=== PATIENT | female | born 1965 | race Hispanic/Latino ===

== ENCOUNTER 2017-05-23 19:53 | Emergency (ER) | payer OTHER ==
[2017-05-23 20:30] VITALS: BP 104/71; PULSE 90; RESP 14; TEMP 98.7; O2SAT 97
[2017-05-23] MEDS ORDERED: Sodium Chloride 0.9% 1,000 ML IV ONE (21:12)
[2017-05-23] MEDS ORDERED: Sodium Chloride 0.9% 1,000 ML ONE (21:24)
[2017-05-23 21:26] LABS: BASO % 0.6 % (0.0-2.0); EOS # 0.1 K/uL (0.0-0.7); EOS % 1.4 % (0.0-4.0); LYMPH # 1.9 K/uL (1.0-4.3); MEAN CELL VOLUME 98.2 fL (81.0-99.0); MEAN CORPUSCULAR HEMOGLOBIN 34.4 pg (27.0-31.0); MEAN PLATELET VOLUME 9.4 fL (7.2-11.7); MONO # 0.4 K/uL (0.0-0.8); MONO % 6.7 % (0.0-10.0); NEUT # 3.3 K/uL (1.8-7.0); NEUT % 57.3 % (50.0-75.0); NRBC % 0.2 % (0.0-2.0); RBC 4.67 Mil/uL (3.80-5.20); RED CELL DISTRIBUTION WIDTH 14.3 % (11.5-14.5); WHITE BLOOD COUNT 5.7 K/uL (4.8-10.8)
[2017-05-23 21:39] LABS: ALB/GLOB RATIO 1.4 (1.0-2.1); ALBUMIN 4.8 g/dL (3.5-5.0); ALT/SGPT 107 U/L (9-52); AST/SGOT 175 U/L (14-36); BLOOD UREA NITROGEN 13 mg/dL (7-17); CALCIUM 9.3 mg/dl (8.6-10.4); GFR AFRICAN-AMERICAN > 60; GFR NON-AFRICAN AMERICAN > 60; LIPASE 424 U/L (23-300)
[2017-05-23 21:41] LABS: INR 0.9; PROTHROMBIN TIME 10.1 SECONDS (9.7-12.2)
[2017-05-23] MEDS ORDERED: Iodixanol 320 MG/ML 100 ML BOTTLE IV ONE (22:59)
[2017-05-23 23:06] LABS: SQUAMOUS EPITHIAL 4 /hpf (0-5); URINE BACTERIA RARE (<OCC); URINE BILIRUBIN NEGATIVE (NEGATIVE); URINE BLOOD NEGATIVE (NEGATIVE); URINE CLARITY Clear (Clear); URINE COLOR Yellow (YELLOW); URINE GLUCOSE (UA) NORMAL (Normal); URINE LEUKOCYTE ESTERASE NEG Leu/uL (Negative); URINE PROTEIN NEGATIVE (NEGATIVE)
[2017-05-23 23:14] LABS: BARBITURATES, UR NEGATIVE (NEGATIVE); BENZODIAZEPINES, UR POSITIVE (NEGATIVE); OPIATES, UR NEGATIVE (NEGATIVE); PHENCYCLIDINE, UR NEGATIVE (NEGATIVE)
--- NOTE | 2017-05-24 00:41 | CT ---
EXAM: CT Abdomen and Pelvis With Intravenous Contrast EXAM DATE/TIME: 05/23/2017 10:01 PM CLINICAL HISTORY: 51 years old, female; Pain; Abdominal pain; Flank; Left; Additional info: Abd pain h/o pancreatitis, left flank ecchymoses TECHNIQUE: Axial computed tomography images of the abdomen and pelvis with intravenous contrast. All CT scans at this facility use one or more dose reduction techniques, viz.: automated exposure control; ma/kV adjustment per patient size (including targeted exams where dose is matched to indication; i.e. head); or iterative reconstruction technique. Coronal and sagittal reformatted images were created and reviewed. CONTRAST: 100 mL of [id number] administered intravenously. COMPARISON: No relevant prior studies available. FINDINGS: LUNG BASES: No significant abnormality seen. ABDOMEN: LIVER: Fatty infiltration of the liver. GALLBLADDER AND BILE DUCTS: No CT evidence of acute cholecystitis. No evidence of significant biliary ductal dilatation. PANCREAS: No CT evidence of acute pancreatitis. SPLEEN: No acute abnormality of the spleen identified. ADRENALS: No acute abnormality of the adrenal glands identified. KIDNEYS AND URETERS: Moderate to marked bilateral perinephric stranding, a nonspecific finding. No renal stones, hydronephrosis, or hydroureter seen. STOMACH AND BOWEL: Duodenal diverticulum noted. Otherwise, no significant abnormality of the bowel is identified. No evidence of small bowel obstruction. No evidence of diverticulitis. APPENDIX: Appendix is seen, and is within normal limits in appearance. PELVIS: BLADDER: Mild thickening of the bladder wall. REPRODUCTIVE:No acute abnormality of the reproductive organs is seen. No acute abnormality of the uterus identified. No evidence of large adnexal masses. ABDOMEN and PELVIS: INTRAPERITONEAL SPACE: No evidence of free intraperitoneal air or fluid. BONES/JOINTS: No acute fractures or other acute bony abnormality noted. SOFT TISSUES: Small ventral hernia, in the midline anterior abdominal wall, containing only fat. No evidence of bowel herniation. VASCULATURE: No evidence of abdominal aortic aneurysm. No evidence of periaortic hemorrhage. LYMPH NODES: No evidence of diffuse lymphadenopathy. IMPRESSION: - Mild bladder wall thickening. This is a nonspecific finding, but can be seen with cystitis. Recommend clinical correlation. - Otherwise, no evidence of significant acute process. - See above for remaining findings.
--- NOTE | 2017-05-24 00:47 | C.PDOC ---
Time Seen by Provider: 05/23/17 21:04 Chief Complaint (Nursing): Abdominal Pain History Per: Patient Onset/Duration Of Symptoms: Days (2) Current Symptoms Are (Timing): Still Present Context: Recent Trauma (Fell at home) Severity: Moderate Location Of Pain/Discomfort: Diffuse Radiation Of Pain To:: Back Quality Of Discomfort: "Pain" Associated Symptoms: Nausea, Vomiting Alleviating Factors: None Additional History Per: Prior Records Past Medical History Reviewed: Historical Data, Nursing Documentation, Vital Signs Vital Signs: Last Vital Signs Temp 98.7 F 05/23/17 20:25 Pulse 90 05/23/17 20:25 Resp 14 05/23/17 20:25 BP 104/71 05/23/17 20:25 Pulse Ox 97 05/23/17 20:25 - Medical History PMH: HTN, Pancreatitis Other PMH: Alcohol abuse Surgical History: Family History: States: Unknown Family Hx - Social History Hx Alcohol Use: Yes Hx Substance Use: Yes - Immunization History Hx Tetanus Toxoid Vaccination: No Hx Influenza Vaccination: No Hx Pneumococcal Vaccination: No Review Of Systems Except As Marked, All Systems Reviewed And Found Negative. Constitutional: Negative for: Fever, Weakness Cardiovascular: Negative for: Chest Pain Respiratory: Negative for: Shortness of Breath Gastrointestinal: Positive for: Nausea, Vomiting, Abdominal Pain. Negative for : Diarrhea, Melena, Hematochezia, Hematemesis Genitourinary: Negative for: Dysuria Musculoskeletal: Positive for: Back Pain. Negative for: Neck Pain Skin: Positive for: Bruising. Negative for: Rash Neurological: Negative for: Weakness, Numbness, Headache Physical Exam - Physical Exam Appears: Non-toxic, No Acute Distress Skin: Warm, Dry Head: Atraumatic, Normacephalic Eye(s): bilateral: PERRL, EOMI Neck: Normal ROM, No Midline Cervical Tenderness, No Step Off Deformity, Supple Chest: Symmetrical, No Deformity Cardiovascular: Rhythm Regular Respiratory: Normal Breath Sounds, No Accessory Muscle Use Gastrointestinal/Abdominal: Soft, Tenderness (nonspecific), Other (Ecchemoses on left flank area) Back: No Vertebral Tenderness Extremity: Normal ROM, No Deformity Extremity: Bilateral: Hips Non-Tender, Pelvis-Stable Neurological/Psych: Oriented x3, Normal Motor, Normal Sensation ED Course And Treatment - Laboratory Results Result Diagrams: 05/23/17 21:23 05/23/17 21:23 ECG: Interpreted By Me, Viewed By Me ECG Rhythm: Sinus Rhythm, Nonspecific Changes Rate From EC O2 Sat by Pulse Oximetry: 97 Pulse Ox Interpretation: Normal - CT Scan/US CT abd/pelv Other Rad Studies (CT/US): Read By Radiologist, Radiology Report Reviewed CT/US Interpretation: IMPRESSION: - Mild bladder wall thickening. This is a nonspecific finding, but can be seen. with cystitis. Recommend clinical correlation. - Otherwise, no evidence of significant acute process. - See above for remaining findings. Progress Note: Pt was initially requesting detox from alcohol. However, during the medical clearance process (after returning from CT scan), I was informed by the staff that the patient walked out during evaluation. The staff, including the nurses and collision worker tried to convince her to stay but she left anyway and did not wait for me to try to go through the AMA process. Disposition - Disposition Disposition: ELOPEMENT - ER ONLY Disposition Time: 00:30 Condition: FAIR - Clinical Impression Clinical Impression: Alcohol abuse, Patient left before treatment completed
--- NOTE | 2017-05-25 19:25 | CARD ---
APPROVED REPORT EKG Measurement Heart [id number] <Conclusion> Normal sinus rhythm Prolonged QT Abnormal ECG
== END 2017-05-24 00:30 | disposition left against medical advice (07) ==
LOC: C.ER 19:53
DX: F10.10 Alcohol abuse, uncomplicated (principal); Y90.8 Blood alcohol level of 240 mg/100 ml or more
CPT/HCPCS: 74177; 80053; 80320; 80324; 80345; 80346; 80349; 80353; 80358; 80361; 81001; 83690; 83992; 84702; 85025; 85610; 85730; 93005; 96361; 96374; 96375; 99285; J2765; J7040; Q9967

== ENCOUNTER 2017-05-25 11:29 | Inpatient (IN) | payer MEDICAID, OTHER ==
[2017-05-25 12:33] LABS: SQUAMOUS EPITHIAL < 1 /hpf (0-5); URINE BILIRUBIN NEGATIVE (NEGATIVE); URINE BLOOD NEGATIVE (NEGATIVE); URINE CLARITY Clear (Clear); URINE COLOR Straw (YELLOW); URINE GLUCOSE (UA) NORMAL (Normal); URINE LEUKOCYTE ESTERASE NEG Leu/uL (Negative); URINE PROTEIN NEGATIVE (NEGATIVE); URINE UROBILINOGEN NORMAL mg/dL (0.2-1.0)
[2017-05-25 12:34] LABS: HCG,QUALITATIVE URINE NEGATIVE (NEGATIVE)
[2017-05-25 12:39] LABS: BASO # 0.1 K/uL (0.0-0.2); BASO % 1.2 % (0.0-2.0); EOS # 0.1 K/uL (0.0-0.7); EOS % 1.1 % (0.0-4.0); HEMOGLOBIN 14.6 g/dL (11.0-16.0); LYMPH # 1.6 K/uL (1.0-4.3); LYMPH % 27.2 % (20.0-40.0); MEAN CELL VOLUME 97.7 fL (81.0-99.0); MEAN CORPUSCULAR HEMOGLOBIN 34.5 pg (27.0-31.0); MEAN CORPUSCULAR HGB CONC 35.3 g/dL (33.0-37.0); MEAN PLATELET VOLUME 9.1 fL (7.2-11.7); MONO # 0.3 K/uL (0.0-0.8); MONO % 4.7 % (0.0-10.0); NEUT # 3.8 K/uL (1.8-7.0); NEUT % 65.8 % (50.0-75.0); NRBC % 0.1 % (0.0-2.0); RBC 4.25 Mil/uL (3.80-5.20); RED CELL DISTRIBUTION WIDTH 14.4 % (11.5-14.5); WHITE BLOOD COUNT 5.8 K/uL (4.8-10.8)
[2017-05-25 12:44] LABS: BARBITURATES, UR NEGATIVE (NEGATIVE); BENZODIAZEPINES, UR NEGATIVE (NEGATIVE); OPIATES, UR NEGATIVE (NEGATIVE); PHENCYCLIDINE, UR NEGATIVE (NEGATIVE)
[2017-05-25 12:59] LABS: ALB/GLOB RATIO 1.4 (1.0-2.1); ALBUMIN 4.3 g/dL (3.5-5.0); ALT/SGPT 71 U/L (9-52); AST/SGOT 135 U/L (14-36); BLOOD UREA NITROGEN 11 mg/dL (7-17); CALCIUM 9.1 mg/dl (8.6-10.4); GFR AFRICAN-AMERICAN > 60; GFR NON-AFRICAN AMERICAN > 60
--- NOTE | 2017-05-25 13:44 | C.PDOC ---
History Of Present Illness 51 y/o female presents to ED requesting detox from ETOH. Patient reports last drink was earlier today and denies history of withdrawal seizures, suicidal / homicidal ideation or any physical complaints at this time. Chief Complaint (Nursing): Substance Abuse History Per: Patient History/Exam Limitations: no limitations Onset/Duration Of Symptoms: Days Current Symptoms Are (Timing): Still Present Suicide/Self Injury Attempted (Context): None Modifying Factor(s): Alcohol Past Medical History Reviewed: Historical Data, Nursing Documentation, Vital Signs Vital Signs: Last Vital Signs Temp 98.3 F 05/25/17 14:50 Pulse 80 05/25/17 14:50 Resp 18 05/25/17 14:50 BP 100/68 05/25/17 14:50 Pulse Ox 96 05/25/17 14:50 - Medical History PMH: Anxiety, HTN, Pancreatitis Surgical History: Family History: States: No Known Family Hx - Social History Hx Alcohol Use: Yes Hx Substance Use: Yes (marijuana) - Immunization History Hx Tetanus Toxoid Vaccination: No Hx Influenza Vaccination: No Hx Pneumococcal Vaccination: No Review Of Systems Constitutional: Negative for: Fever, Chills Gastrointestinal: Negative for: Nausea, Vomiting Skin: Negative for: Rash Psych: Negative for: Suicidal ideation, Withdrawal Physical Exam - Physical Exam Appears: Non-toxic, No Acute Distress Skin: Warm, Dry, No Rash Head: Atraumatic, Normacephalic Eye(s): bilateral: Normal Inspection Oral Mucosa: Moist Neck: Normal ROM, Supple Cardiovascular: Rhythm Regular Respiratory: Normal Breath Sounds, No Rales, No Rhonchi, No Wheezing Gastrointestinal/Abdominal: Soft, No Tenderness, No Guarding, No Rebound Extremity: Normal ROM, Capillary Refill (<2 seconds) Neurological/Psych: Oriented x3, Normal Speech ED Course And Treatment - Laboratory Results Result Diagrams: 05/25/17 12:34 05/25/17 12:34 O2 Sat by Pulse Oximetry: 98 (RA) Pulse Ox Interpretation: Normal Disposition - Disposition Disposition: HOSPITALIZED Disposition Time: 13:00 Condition: STABLE - Clinical Impression Clinical Impression: Alcohol use disorder, severe, dependence, Alcohol abuse - Scribe Statement The provider has reviewed the documentation as recorded by the Echoibrober Sams All medical record entries made by the Scribrober were at my direction and personally dictated by me. I have reviewed the chart and agree that the record accurately reflects my personal performance of the history, physical exam, medical decision making, and the department course for this patient. I have also personally directed, reviewed, and agree with the discharge instructions and disposition.
[2017-05-25] MEDS ORDERED: Albuterol HFA 90 mcg/actuation (8 g) INH PRN (14:27)
--- NOTE | 2017-05-25 14:36 | PCM.BM ---
<Sylvia Barbour - Last Filed: 05/25/17 14:34> Treatment Plan Problems - Problems identified on initial assessmt Potential for alcohol and benzo withdrawals Date Initiated: 05/25/17 Assessment reference: NA Status: Active Treatment assets and liabiliti Patient Assests: adapts well, cooperative, motivated, ADL independent, negotiates basic needs Patient Liabilities: physical pain, substance abuse, medical problems - Milieu Protocol Maintain good personal hygiene: daily Encourage regular showers, daily Remind patient to perform daily oral care, daily Assist patient to perform ADL's Conduct patient checks and document Observation sheet: Q15 minutes Maintain personal safety: every shift Educate patient to report safety concerns to staff, every shift Monitor environment for contraband/sharps Medication safety: Monitor for expected outcome, potential side effects: every shift, Assess barriers to learning: every shift, Assess readiness for medication education: every shift <Johanny Bermudez - Last Filed: 05/25/17 15:23> - Diagnosis (1) Alcohol use disorder, severe, dependence Status: Acute Interventions: 05/25/17 15:23 * Assess 7x/week regarding severity of withdrawal * Educate regarding risks, benefits, side effects and alternatives of medications * Use Motivational Interviewing for abstinence * Use CBT for relapse prevention * Medication management for withdrawal symptoms * Encourage medication assisted treatment * <Zulma John - Last Filed: 05/26/17 10:59> Family Contact Family involvement: Family/SO is involved - Goals for Treatment Patient goals for treatment: Complete detox and transition to outpatient counseling. Discharge/Continuing Care - Education Needs Education Needs: Patient Medication, Patient Diagnosis/Disease Process, Patient Coping Skills, Patient Anger Management skills, Patient Placement options, Patient Community resources, Significant Other Medication, Significant Other Diagnosis/Disease Process, Significant Other Coping Skills, Significant Other Anger Management skills, Significant Other Placement options, Significant Other Community resources - Discharge Discharge Criteria: No longer exhibiting s/s of withdrawal, Reduction of target symptoms Discharge to:: Home, With Family - Treatment Team Participation Patient/Family/SO Statement: 05/26/17 10:58 "I can't go to inpatient right now. I can only;y do outpatient..." Discussed with Family/SO: No Was Patient/Family/SO present at Treatment Team Meeting: Yes
--- NOTE | 2017-05-25 15:23 | PCM.PSYCH ---
Initial Psychiatric Evaluation - Initial Psychiatric Evaluation Type of Admission: Voluntary Legal Status: Capacity Chief Complaint (in patient's own words): "Alcohol" History of Present Illness and Precipitating Events: The pt is seen, chart reviewed and case discussed. Pt is a 51 year old female, living with her , has 2 children, unemployed. She came to ED requesting alcohol detox. Pt reports drinking today, with total of 7-8 airplane bottles vodka, but typically drinks up to 15 airplane bottles daily. Pt states she has been drinking since the age of 15, but the drinking has become unmanageable for the last 5 years. Pt states the trigger for the worsening drinking was an incident where she was attacked by her neighbor's dog. Pt reports current w/d symptoms, and threatened leaving AMA b/c she didn't get "anything." Reassurance and prn librium given with good effect. Pt denies history of seizures, but states she has a history of blackouts. Pt also reports smoking marijuana every other day when she uses "a few puffs." Pt states her last detox was at [facility] "a few months ago." Pt is interested in AA meetings and IOP following detox treatment. Past psych x: Pt denies S/I; H/I; A/V/T hallucinations and history of same. Pt denies history of psychiatric admissions and treatment, but has history of depression and anxiety. Medical hx: Pt states she is under the care of only a PMD, Dr.Saleem Carrillo. Pt reports that she is diagnosed with HTN, and "possibly vertigo" as pt experiences frequent dizzy spells. Pt also reports a history of pancreatitis, and believes she may be having a flare-up. Labs ordered. Klonopin 0.5mg TID; Zofran ODT 4mg Q4 PRN; Neurontin 400mg Q8; Remeron 30mg HS; sometimes Clonidine 0.1mg TID; Acyclovir TID PRN; Lexapro 20mg QD; Buspirone 15mg TID; Metoprolol Succinate 50mg BID. Family psych hx: Alcoholism Current Medications: Active Medications Generic Name Dose Route Start Last Admin Trade Name Freq PRN Reason Stop Dose Admin Albuterol 1 puff 05/25/17 14:27 Ventolin Hfa 90 Mcg/Actuation (8 G) INH RQ4 PRN SOB Buspirone HCl 15 mg 05/25/17 18:00 Buspar PO TID [facility] Chlordiazepoxide 25 mg 05/25/17 14:23 Librium PO Q4H PRN Alcohol Withdrawal Chlordiazepoxide 25 mg 05/25/17 18:00 Librium PO 05/30/17 17:59 Q6 KARINA Taper Clonidine HCl 0.1 mg 05/25/17 14:23 Catapres PO Q4H PRN Symptoms of alcohol withdrawl Escitalopram Oxalate 20 mg 05/26/17 10:00 Lexapro PO DAILY [facility] Folic Acid 1 mg 05/25/17 14:30 Folic Acid PO DAILY [facility] Gabapentin 400 mg 05/25/17 18:00 Neurontin PO TID [facility] Hydroxyzine HCl 25 mg 05/25/17 14:27 Atarax PO Q4H PRN Anxiety Ibuprofen 600 mg 05/25/17 14:27 Motrin Tab PO Q6H PRN Pain, moderate (4-7) Metoprolol Succinate 50 mg 05/25/17 18:00 Toprol Xl PO BID [facility] Mirtazapine 30 mg 05/25/17 22:00 Remeron PO HS [facility] Multivitamins 1 tab 05/25/17 14:30 Hexavitamin PO DAILY [facility] Nicotine 1 patch 05/25/17 13:45 05/25/17 13:46 Nicoderm Cq TD 1 patch DAILY [facility] Administration Thiamine HCl 100 mg 05/25/17 14:30 Vitamin B1 Tab PO DAILY [facility] Past Psychiatric History - Past Psychiatric History Previous Treatment History: Intensive Outpatient Pertinent Medical Hx (Current Medical&Sleep Prob, Allergies): Allergies Allergy/AdvReac Type Severity Reaction Status Date / Time No Known Allergies Allergy Unverified 05/23/17 20:30 Buspirone HCl [Buspirone HCl] 15 mg PO TID 05/23/17 Escitalopram [Lexapro] 20 mg PO DAILY 05/23/17 Metoprolol Succinate [Toprol XL] 50 mg PO BID 05/23/17 clonazePAM [clonAZEPAM] 0.5 mg PO TID 05/23/17 Acyclovir [Zovirax] 400 mg PO TID 05/25/17 Albuterol HFA [Ventolin HFA 90 mcg/actuation (8 g)] 0.09 mg IH PRN PRN 05/25/17 Clonidine HCl [Catapres] 0.1 mg PO TID 05/25/17 Gabapentin [Neurontin] 400 mg PO Q8 05/25/17 Mirtazapine [Remeron] 30 mg PO HS 05/25/17 Naltrexone [Revia] 50 mg PO DAILY 05/25/17 Ondansetron ODT [Zofran ODT] 4 mg PO Q4 PRN 05/25/17 Review of Systems - Neurological Neurological: Tremor - Psychiatric Psychiatric: Abnormal Sleep Pattern, Anxiety, Irritability, Mood Swings. absent : Homicidal Ideation, Suicidal Ideation Mental Status Examination - Personal Presentation Personal Presentation: Looks stated age - Affect Affect: Constricted - Motor Activity Motor Activity: Calm - Reliability in Providing Information Reliability in Providing Information: Good - Speech Speech: Organized - Mood Mood: Anxious - Formal Thought Process Formal Thought Process: No Impairment - Cognitive Functions Orientation: Person, Place, Situation, Time Sensorium: Alert Attention/Concentration: Attentive Estimate of Intelligence: Average Judgement: Intact, as evidence by: Insight regarding need for hospitalization Memory: Recent intact, as evidence by: Ability to recall events of the day, Remote intact, as evidenced by: Abilit to recall sig. life events - Risk Risk: Withdrawal, Diminished functioning - Strength & Assets Inventory Strength & Assets Inventory: Family support, Cooperative - Limitations Limitations: Other DSM 5 DX - DSM 5 DSM 5 Diagnosis: Alcohol withdrawal Alcohol use d/o - severe ALIYAH Cannabis use d/o - severe - Recommended/Plan of Treatment Treatment Recommendations and Plan of Treatment: Librium detox As needed medications Gabapentin for augmentation Continue other meds but klonopin - she agreed All risks, benefits and alternatives of medications, including no medications, discussed and the patient understood and agreed. Attend groups and activities Supportive therapy and psychoeducation [place] for abstinence CBT for relapse prevention Encourage MAT Refer to rehab or IOP Attend self-help groups as well [place] for smoking cessation and patch if needed 34 min Projected ELOS: 5-6 days Prognosis: good w treatment - Smoking Cessation Smoking Cessation Initiated: Yes
[2017-05-25] MEDS: Multiple Vitamins Tab PO SCH (15:25)
[2017-05-25] MEDS: Metoprolol Succinate 50 mg XL Tab PO SCH (17:30)
[2017-05-25] MEDS ORDERED: Aluminum Hydroxide/Magnesium Hydroxide Susp (30 mL) PO PRN (20:27)
[2017-05-26] MEDS: Metoprolol Succinate 50 mg XL Tab PO SCH ×2 (09:42→17:09)
[2017-05-26] MEDS: Multiple Vitamins Tab PO SCH (09:43)
--- NOTE | 2017-05-26 10:05 | PCM.PYCHPN ---
Psychiatric Progress Note - Psychiatric Progress Note Patient seen today, length of contact: 16 min Patient Chief Complaint: "OK" Problems Identified/Issues Discussed: The pt is seen, chart reviewed, case discussed with staff. The pt is compliant with medications and reports no side-effects. Symptoms are improving but needs more time to stabilize. After care discussed, support and psychoeducation given. Lipase went from mid 400's to 950. Consult requested. Pt looks clinically OK, though. Medication Change: Yes (detox chnages daily) Medical Record Reviewed: Yes Mental Status Examination - Cognitive Function Orientation: Person, Place, Situation, Time Memory: Intact Attention: WNL Concentration: WNL Association: WNL Fund of Knowledge: WNL - Mood Mood: Anxious - Affect Affect: Constricted - Speech Speech: Appropriate - Formal Thought Process Formal Thought Process: No Impairment - Suicidal Ideation Suicidal Ideation: No - Homicidal Ideation Homicidal Ideation: No Goal/Treatment Plan - Goal/Treatment Plan Need for Continued Stay: Discharge may exacerbated symptoms, Severe functional impairment Progress Toward Problem(s) and Goals/Treatment Plan: Librium detox As needed medications Gabapentin for augmentation Continue other meds but klonopin - she agreed All risks, benefits and alternatives of medications, including no medications, discussed and the patient understood and agreed. Attend groups and activities Supportive therapy and psychoeducation [place] for abstinence CBT for relapse prevention Encourage MAT Refer to rehab or IOP Attend self-help groups as well [place] for smoking cessation and patch if needed Labs and consult requested
[2017-05-26] MEDS: Pantoprazole 40 mg EC Tab PO SCH (10:29)
[2017-05-26] MEDS ORDERED: Ergocalciferol 50,000 Intl Units Cap PO SCH (15:00)
[2017-05-27 08:05] LABS: ALB/GLOB RATIO 1.3 (1.0-2.1); ALBUMIN 3.8 g/dL (3.5-5.0); ALT/SGPT 44 U/L (9-52); AST/SGOT 64 U/L (14-36); BLOOD UREA NITROGEN 12 mg/dL (7-17); GFR AFRICAN-AMERICAN > 60; GFR NON-AFRICAN AMERICAN > 60
[2017-05-27] MEDS ORDERED: Potassium Chloride 20 mEq ER Tab PO ONE (09:00)
[2017-05-27] MEDS: Multiple Vitamins Tab PO SCH (10:04)
[2017-05-27] MEDS: Magnesium Oxide 400 mg Tab UD PO SCH (10:05)
[2017-05-27] MEDS: Metoprolol Succinate 50 mg XL Tab PO SCH ×2 (10:05→17:13)
[2017-05-27] MEDS: Pantoprazole 40 mg EC Tab PO SCH (10:05)
[2017-05-27 10:30] LABS: LIPASE 2891 U/L (23-300)
[2017-05-27 13:13] VITALS: RESP 20
--- NOTE | 2017-05-27 14:17 | PCM.PYCHPN ---
Psychiatric Progress Note - Psychiatric Progress Note Patient seen today, length of contact: 18 min Patient Chief Complaint: "My stomach doesn't feel right" Problems Identified/Issues Discussed: She is seen, case discussed and chart and labs reviewed. She has pancreatitis now - Lipase went from 450 (high) on 05/23 to 2800+ today. She is stable ie no throwing up or cramps but will be transferred to medicine for further treatment Otherwise detox is going well. No new issues Support and Mi used. Medication Change: Yes (detox chnages daily) Medical Record Reviewed: Yes Mental Status Examination - Cognitive Function Orientation: Person, Place, Situation, Time Memory: Intact Attention: WNL Concentration: WNL Association: WNL Fund of Knowledge: WNL - Mood Mood: Anxious - Affect Affect: Constricted - Speech Speech: Appropriate - Formal Thought Process Formal Thought Process: No Impairment - Suicidal Ideation Suicidal Ideation: No - Homicidal Ideation Homicidal Ideation: No Goal/Treatment Plan - Goal/Treatment Plan Need for Continued Stay: Discharge may exacerbated symptoms, Severe functional impairment Progress Toward Problem(s) and Goals/Treatment Plan: Librium detox As needed medications Gabapentin for augmentation Continue other meds but klonopin - she agreed All risks, benefits and alternatives of medications, including no medications, discussed and the patient understood and agreed. Attend groups and activities Supportive therapy and psychoeducation [place] for abstinence CBT for relapse prevention Encourage MAT Refer to rehab or IOP Attend self-help groups as well [place] for smoking cessation and patch if needed Labs and consult requested and appreciated
--- NOTE | 2017-05-27 14:25 | CP.PCM.HP ---
History of Present Illness - History of Present Illness History of Present Illness: Medical Consult requested to Detox floor 51 year old female with past medical history of pancreatitis, hypertension, anxiety, depression, and alcohol use disorder presents in detox floor with severe abdominal pain and one episode of vomiting in the morning. Patient has an extensive history of alcohol abuse stating she began drinking at age 15. Her drinking escalated dramatically over the past four years after she was attacked by her neighbors dog requiring 52 stitches on her arms and neck. Patient states she currently drinks 10-15 "airplane" bottles of alcohol daily. Patient began drinking alcohol at age 15 and drank continuously to a lesser extent up until 4 years ago. Patient's longest period of sobriety was in 1991 for 2 years while trying to conceive. Her latest period of sobriety was 90 days three years ago. Patient states she has back pain which began on Wednesday after a fall during a drunken episode. She came to the hospital for detox that day and had a CT abdomen and pelvis done while she awaited placement in the detox unit which showed mild bladder wall thickening but no acute changes of the pancreas. Patient left AMA that day due to feeling as though the transfer was taking too long. Patient returned to the hospital this Wednesday being admitted straight to detox. Her abdominal pain began yesterday. Patient describes the pain as sharp, located throughout her abdomen but particularly in the epigastric area, rates it as a 10/10 which wraps along both flanks and radiates to back. Patient has a hard time differentiating this pain from the pain she had due to the fall over the weekend. Patient denies any alleviated or precipitating factors. Patient states she has been vomiting a "white-green phlegm" for 3 weeks, usually once per day in the morning. Patient had one episode of emesis this morning with additional dry heaves throughout the day. Patient states her post- nasal drip incites the vomiting and denies any alleviating factors. Currently patient is calm and displays mild discomfort likely related to abdominal pain and withdrawal symptoms. Primary Doctor: Dr. Molina Past Medical History: pancreatitis- 1 year ago, patient spent 8 days in [facility] in [place]. Hypertension, anxiety, depression Past Surgical: 2 c-sections 29, 26 years ago. Colonoscopy and endoscopy 1 year ago Allergies: denies Hospitalizations: none other than surgical history Family history: father- DM, Colon CA in his 60's, Mother- bilateral breast cancer Social: Tobacco- 1 pack/day for 37 years, Alcohol 10-15 airplane bottles of liquor/day for 4-5 years Drugs- marijuana 1"puff" per day since the , denies intravenous or other illicit drug use Living- lives with , is unemployed Present on Admission - Present on Admission Any Indicators Present on Admission: No History of DVT/PE: No History of Uncontrolled Diabetes: No Urinary Catheter: No Decubitus Ulcer Present: No Review of Systems - Constitutional Constitutional: Anorexia. absent: Chills, Fever - Cardiovascular Cardiovascular: absent: Chest Pain, Irregular Heart Rhythm, Leg Edema, Palpitations, Pedal Edema - Respiratory Respiratory: absent: Cough, Dyspnea - Gastrointestinal Gastrointestinal: Abdominal Pain, Nausea, Vomiting. absent: Constipation, Diarrhea - Genitourinary Genitourinary: absent: Dysuria, Hematuria - Musculoskeletal Musculoskeletal: absent: Stiffness, Tingling - Integumentary Integumentary: absent: Rash (ecchymosis on left back side with excoriations ) - Psychiatric Psychiatric: Anxiety, Depression, Irritability Past Patient History - Infectious Disease Hx of Infectious Diseases: None - Past Social History Smoking Status: Heavy Smoker > 10 Cigarettes Daily - CARDIAC Hx Hypertension: Yes - PULMONARY Hx Tuberculosis: No - NEUROLOGICAL HX Cerebrovascular Accident: No Hx Seizures: No - HEMATOLOGICAL/ONCOLOGICAL Hx Cancer: No Hx Human Immunodeficiency Virus (HIV): No - MUSCULOSKELETAL/RHEUMATOLOGICAL Hx Falls: Yes (fell 2 days ago) - GASTROINTESTINAL Hx Pancreatitis: Yes - GENITOURINARY/GYNECOLOGICAL Hx Sexually Transmitted Disorders: No - PSYCHIATRIC Hx Substance Use: Yes - SURGICAL HISTORY Hx Surgeries: Yes Hx Section: Yes - ANESTHESIA Hx Anesthesia: No Hx Anesthesia Reactions: No Hx Malignant Hyperthermia: No Meds Allergies/Adverse Reactions: Allergies Allergy/AdvReac Type Severity Reaction Status Date / Time No Known Allergies Allergy Unverified 05/23/17 20:30 Physical Exam - Constitutional Appears: Non-toxic, No Acute Distress - Head Exam Head Exam: ATRAUMATIC, NORMAL INSPECTION, NORMOCEPHALIC - Eye Exam Eye Exam: EOMI, Normal appearance - ENT Exam ENT Exam: Mucous Membranes Moist - Respiratory Exam Respiratory Exam: Clear to Auscultation Bilateral, NORMAL BREATHING PATTERN - Cardiovascular Exam Cardiovascular Exam: REGULAR RHYTHM, RRR, +S1, +S2 - GI/Abdominal Exam GI & Abdominal Exam: Normal Bowel Sounds, Soft, Tenderness. absent: Distended, Guarding - Extremities Exam Extremities exam: Positive for: normal inspection. Negative for: pedal edema, tenderness - Back Exam Additional comments: left sided tenderness post fall with ecchymosis and excoriations - Neurological Exam Neurological exam: CN II-XII Intact, Normal Gait, Oriented x3 - Psychiatric Exam Psychiatric exam: Anxious, Normal Affect - Skin Skin Exam: Intact, Normal Color, Warm Additional comments: left sided tenderness post fall with ecchymosis and excoriations Results - Vital Signs Recent Vital Signs: Last Vital Signs Temp 99.4 F 05/27/17 13:12 Pulse 85 05/27/17 13:12 Resp 20 05/27/17 13:12 BP 141/101 H 05/27/17 13:12 Pulse Ox 95 05/27/17 13:12 - Labs Result Diagrams: 05/28/17 07:36 05/28/17 07:36 Labs: Laboratory Results - last 24 hr 05/27/17 07:32 Sodium 141 Potassium 3.1 L Chloride 96 L Carbon Dioxide 29 Anion Gap 19 BUN 12 Creatinine 0.6 L Est GFR ( Amer) > 60 Est GFR (Non-Af Amer) > 60 Random Glucose 104 Calcium 9.0 Magnesium 1.7 Total Bilirubin 1.0 AST 64 H D ALT 44 Alkaline Phosphatase 47 Total Protein 6.8 Albumin 3.8 Globulin 2.9 Albumin/Globulin Ratio 1.3 Lipase 2891 H Assessment & Plan - Assessment and Plan (Free Text) Assessment: Alcohol Withdrawal continue meds as prescribed by psych: Librium 25mg po q4h prn and 25mg q6h prn Clonidine .1mg po q4h prn Folic acid 1mg po daily Atarax 25mg po q4h prn Mag-ox 400mg po daily Mirtazapine 30mg po HS Multivitamins Zofran 4mg po q8h prn Thiamine 100mg po HS prn Trazodone 100mg po hs prn Pancreatitis Lipase: 2891 NPO LR @125cc/hr COPD Albuterol inh Depression Buspar 15mg po TID Lexapro 20mg po daily Tobacco abuse Nicotine patch Prophylaxis SCDs Protonix 40mg po daily
[2017-05-27] MEDS ORDERED: Dextrose 5%/Lactated Ringer's 1,000 ML IV SCH (15:00)
[2017-05-27] MEDS ORDERED: Morphine 15 mg Immediate Release Tab PO STA (20:48)
[2017-05-27] MEDS: Lactated Ringer's 1,000 ML IV SCH (20:50)
[2017-05-27] MEDS ORDERED: Tramadol 25 mg PO STA (20:58)
[2017-05-28] MEDS: Lactated Ringer's 1,000 ML IV SCH ×3 (04:52→21:38)
[2017-05-28 07:45] LABS: BASO % 0.6 % (0.0-2.0); EOS # 0.1 K/uL (0.0-0.7); EOS % 2.6 % (0.0-4.0); HEMOGLOBIN 13.3 g/dL (11.0-16.0); LYMPH # 1.1 K/uL (1.0-4.3); LYMPH % 26.1 % (20.0-40.0); MEAN CELL VOLUME 98.5 fL (81.0-99.0); MEAN CORPUSCULAR HEMOGLOBIN 34.2 pg (27.0-31.0); MEAN CORPUSCULAR HGB CONC 34.8 g/dL (33.0-37.0); MEAN PLATELET VOLUME 9.6 fL (7.2-11.7); MONO # 0.3 K/uL (0.0-0.8); MONO % 7.9 % (0.0-10.0); NEUT # 2.6 K/uL (1.8-7.0); NEUT % 62.8 % (50.0-75.0); NRBC % 0.1 % (0.0-2.0); RBC 3.89 Mil/uL (3.80-5.20); RED CELL DISTRIBUTION WIDTH 14.6 % (11.5-14.5); WHITE BLOOD COUNT 4.2 K/uL (4.8-10.8)
[2017-05-28 08:09] LABS: ALB/GLOB RATIO 1.3 (1.0-2.1); ALBUMIN 3.4 g/dL (3.5-5.0); ALT/SGPT 37 U/L (9-52); AMYLASE 68 U/L (30-110); AST/SGOT 53 U/L (14-36); BLOOD UREA NITROGEN 9 mg/dL (7-17); CALCIUM 8.9 mg/dl (8.6-10.4); GFR AFRICAN-AMERICAN > 60; GFR NON-AFRICAN AMERICAN > 60; LIPASE 1377 U/L (23-300)
[2017-05-28] MEDS: Multiple Vitamins Tab PO SCH (09:21)
[2017-05-28] MEDS: Magnesium Oxide 400 mg Tab UD PO SCH (09:23)
[2017-05-28] MEDS: Enoxaparin 40 mg Syringe SC SCH (09:23)
[2017-05-28] MEDS: Metoprolol Succinate 50 mg XL Tab PO SCH ×2 (09:24→18:00)
[2017-05-28] MEDS: Pantoprazole 40 mg EC Tab PO SCH (09:24)
--- NOTE | 2017-05-28 10:43 | CP.PCM.PN ---
Addendum entered and electronically signed by Saskia Knox 05/28/17 18:02 : COPD Advair 1 puff q12h Original Note: <Saskia Knox - Last Filed: 05/28/17 17:37> Subjective - Date & Time of Evaluation Date of Evaluation: 05/28/17 Time of Evaluation: 07:00 - Subjective Subjective: PGY1- Medicine not for Dr. Chirinos Patient seen and examined at bedside and in no acute distress. Patient says her abdominal pain is 6/10, and worse in the upper part of her abdomen. Patient has been passing flatus, but has had no bowel movement. Patient also admits to some nausea, but no vomiting. Patient has some left sided back pain from her fall. Patient also admits to a chronic cough. In the mornings, she sometimes coughs up white to greenish phlegm. Patient denies shortness of breath or chest pain. Objective - Vital Signs/Intake and Output Vital Signs (last 24 hours): Temp Pulse Resp BP Pulse Ox 98.4 F 69 20 132/87 99 05/28/17 08:53 05/28/17 08:53 05/28/17 08:53 05/28/17 08:53 05/28/17 08:53 Intake and Output: 05/28/17 05/28/17 06:59 18:59 Intake Total 700 1200 Balance 700 1200 - Medications Medications: Current Medications Al Hydrox/Mg Hydrox/Simethicone (Maalox 30 Ml) 30 ml PO Q8 PRN PRN Reason: Indigestion / Heartburn Albuterol (Ventolin Hfa 90 Mcg/Actuation (8 G)) 1 puff INH RQ4 PRN PRN Reason: SOB Buspirone HCl (Buspar) 15 mg PO TID KARINA Last Admin: 05/28/17 09:21 Dose: 15 mg Chlordiazepoxide (Librium) 25 mg PO Q4H PRN PRN Reason: Alcohol Withdrawal Last Admin: 05/27/17 21:15 Dose: 25 mg Chlordiazepoxide (Librium) 25 mg PO Q8H KARINA PRN Reason: Taper Stop: 05/30/17 17:59 Last Admin: 05/28/17 09:22 Dose: 25 mg Clonidine HCl (Catapres) 0.1 mg PO Q4H PRN PRN Reason: Symptoms of alcohol withdrawl Last Admin: 05/27/17 16:21 Dose: 0.1 mg Enoxaparin Sodium (Lovenox) 40 mg SC DAILY [facility] Last Admin: 05/28/17 09:23 Dose: 40 mg Ergocalciferol (Drisdol 50,000 Intl Units Cap) 1 cap PO Q7D [facility] Last Admin: 05/26/17 15:56 Dose: 1 cap Escitalopram Oxalate (Lexapro) 20 mg PO DAILY [facility] Last Admin: 05/28/17 09:22 Dose: 20 mg Folic Acid (Folic Acid) 1 mg PO DAILY [facility] Last Admin: 05/28/17 09:21 Dose: 1 mg Gabapentin (Neurontin) 400 mg PO TID [facility] Last Admin: 05/28/17 09:23 Dose: 400 mg Hydroxyzine HCl (Atarax) 25 mg PO Q4H PRN PRN Reason: Anxiety Last Admin: 05/25/17 19:36 Dose: 25 mg Lactated Ringer's (Lactated Ringer's) 1,000 mls @ 125 mls/hr IV .Q8H [facility] Last Admin: 05/28/17 04:52 Dose: Not Given Magnesium Oxide (Mag-Ox) 400 mg PO DAILY [facility] Last Admin: 05/28/17 09:23 Dose: 400 mg Metoprolol Succinate (Toprol Xl) 50 mg PO BID [facility] Last Admin: 05/28/17 09:24 Dose: 50 mg Mirtazapine (Remeron) 30 mg PO HS [facility] Last Admin: 05/27/17 21:28 Dose: 30 mg Multivitamins (Hexavitamin) 1 tab PO DAILY [facility] Last Admin: 05/28/17 09:21 Dose: 1 tab Nicotine (Nicoderm Cq) 1 patch TD DAILY [facility] Last Admin: 05/28/17 09:24 Dose: 1 patch Ondansetron HCl (Zofran Tab) 4 mg PO Q8H PRN PRN Reason: Nausea/Vomiting Last Admin: 05/28/17 09:20 Dose: 4 mg Pantoprazole Sodium (Protonix Ec Tab) 40 mg PO DAILY [facility] Last Admin: 05/28/17 09:24 Dose: 40 mg Pneumococcal Polyvalent Vaccine (Pneumovax 23 Vaccine) 0.5 ml IM .ONCE ONE Stop: 05/29/17 10:01 Thiamine HCl (Vitamin B1 Tab) 100 mg PO DAILY [facility] Last Admin: 05/28/17 09:24 Dose: 100 mg Trazodone HCl (Desyrel) 100 mg PO HS PRN PRN Reason: Insomnia - Labs Labs: 05/28/17 07:36 05/28/17 07:36 - Constitutional Appears: Non-toxic, No Acute Distress - Head Exam Head Exam: ATRAUMATIC, NORMAL INSPECTION, NORMOCEPHALIC - Eye Exam Eye Exam: EOMI, Normal appearance - ENT Exam ENT Exam: Mucous Membranes Dry - Respiratory Exam Respiratory Exam: Clear to Ausculation Bilateral, NORMAL BREATHING PATTERN Additional comments: chronic cough - Cardiovascular Exam Cardiovascular Exam: REGULAR RHYTHM, RRR, +S1, +S2 - GI/Abdominal Exam GI & Abdominal Exam: Soft, Tenderness, Normal Bowel Sounds. absent: Firm, Guarding, Rigid Additional comments: tender to palpation diffusely, more tender in epigastric region - Extremities Exam Extremities Exam: Normal Inspection. absent: Pedal Edema - Back Exam Additional comments: left sided tenderness post fall with ecchymosis and excoriations - Neurological Exam Neurological Exam: Alert, Awake, Oriented x3 - Psychiatric Exam Psychiatric exam: Normal Affect, Normal Mood - Skin Skin Exam: Dry, Warm Additional comments: left sided tenderness post fall with ecchymosis and excoriations Assessment and Plan - Assessment and Plan (Free Text) Assessment: Alcohol Withdrawal Psych consulted, Dr. Lockwood, help appreciated continue meds as prescribed by psych: Librium 25mg po q4h prn and 25mg q6h prn Clonidine .1mg po q4h prn Folic acid 1mg po daily Atarax 25mg po q4h prn Mag-ox 400mg po daily Mirtazapine 30mg po HS Multivitamins Zofran 4mg po q8h prn Thiamine 100mg po HS prn Trazodone 100mg po hs prn Pancreatitis Lipase dowtrending, 1377 05/27/17: Lipase: 2891 NPO LR @125cc/hr COPD/ Chronic bronchitis likely secondary to smoking history Albuterol inh Advair 250/50 inh 2 puffs BID Depression Buspar 15mg po TID Lexapro 20mg po daily Tobacco abuse Nicotine patch S/P Fall f/u hip and pelvis xrays Vitamin D deficiency Vit D 13.7 given 50,000u on 05/26/17 Prophylaxis SCDs Protonix 40mg po daily Plan discussed with Dr. Chirinos <Trev Chirinos - Last Filed: 05/28/17 20:07> Objective - Vital Signs/Intake and Output Vital Signs (last 24 hours): Temp Pulse Resp BP Pulse Ox 99.1 F 75 20 120/75 94 L 05/28/17 15:00 05/28/17 15:00 05/28/17 15:00 05/28/17 15:00 05/28/17 15:00 Intake and Output: 05/28/17 05/29/17 18:59 06:59 Intake Total 2220 Balance 2220 - Medications Medications: Current Medications Al Hydrox/Mg Hydrox/Simethicone (Maalox 30 Ml) 30 ml PO Q8 PRN PRN Reason: Indigestion / Heartburn Albuterol (Ventolin Hfa 90 Mcg/Actuation (8 G)) 1 puff INH RQ4 PRN PRN Reason: SOB Buspirone HCl (Buspar) 15 mg PO TID [facility] Last Admin: 05/28/17 17:58 Dose: 15 mg Chlordiazepoxide (Librium) 25 mg PO Q4H PRN PRN Reason: Alcohol Withdrawal Last Admin: 05/27/17 21:15 Dose: 25 mg Chlordiazepoxide (Librium) 25 mg PO Q12H [facility] PRN Reason: Taper Stop: 05/30/17 17:59 Last Admin: 05/28/17 17:59 Dose: 25 mg Clonidine HCl (Catapres) 0.1 mg PO Q4H PRN PRN Reason: Symptoms of alcohol withdrawl Last Admin: 05/27/17 16:21 Dose: 0.1 mg Enoxaparin Sodium (Lovenox) 40 mg SC DAILY [facility] Last Admin: 05/28/17 09:23 Dose: 40 mg Ergocalciferol (Drisdol 50,000 Intl Units Cap) 1 cap PO Q7D [facility] Last Admin: 05/26/17 15:56 Dose: 1 cap Escitalopram Oxalate (Lexapro) 20 mg PO DAILY [facility] Last Admin: 05/28/17 09:22 Dose: 20 mg Folic Acid (Folic Acid) 1 mg PO DAILY [facility] Last Admin: 05/28/17 09:21 Dose: 1 mg Gabapentin (Neurontin) 400 mg PO TID [facility] Last Admin: 05/28/17 17:58 Dose: 400 mg Hydroxyzine HCl (Atarax) 25 mg PO Q4H PRN PRN Reason: Anxiety Last Admin: 05/28/17 19:05 Dose: 25 mg Lactated Ringer's (Lactated Ringer's) 1,000 mls @ 125 mls/hr IV .Q8H [facility] Last Admin: 05/28/17 14:48 Dose: 125 mls/hr Magnesium Oxide (Mag-Ox) 400 mg PO DAILY [facility] Last Admin: 05/28/17 09:23 Dose: 400 mg Metoprolol Succinate (Toprol Xl) 50 mg PO BID [facility] Last Admin: 05/28/17 18:00 Dose: 50 mg Mirtazapine (Remeron) 30 mg PO HS [facility] Last Admin: 05/27/17 21:28 Dose: 30 mg Multivitamins (Hexavitamin) 1 tab PO DAILY [facility] Last Admin: 05/28/17 09:21 Dose: 1 tab Nicotine (Nicoderm Cq) 1 patch TD DAILY [facility] Last Admin: 05/28/17 09:24 Dose: 1 patch Ondansetron HCl (Zofran Tab) 4 mg PO Q8H PRN PRN Reason: Nausea/Vomiting Last Admin: 05/28/17 09:20 Dose: 4 mg Pantoprazole Sodium (Protonix Ec Tab) 40 mg PO DAILY [facility] Last Admin: 05/28/17 09:24 Dose: 40 mg Pneumococcal Polyvalent Vaccine (Pneumovax 23 Vaccine) 0.5 ml IM .ONCE ONE Stop: 05/29/17 10:01 Fluticasone/Salmeterol (Advair Diskus 250/50) 1 puff INH RQ12 [facility] Thiamine HCl (Vitamin B1 Tab) 100 mg PO DAILY [facility] Last Admin: 05/28/17 09:24 Dose: 100 mg Trazodone HCl (Desyrel) 100 mg PO HS PRN PRN Reason: Insomnia - Labs Labs: 05/28/17 07:36 05/28/17 07:36 Attending/Attestation - Attestation I have personally seen and examined this patient.: Yes I have fully participated in the care of the patient.: Yes I have reviewed all pertinent clinical information, including history, physical exam and plan: Yes Notes (Text): 05/28/17 20:03 Patient was seen and examined with the resident. Exam, assessment and plan were gone over with the resident. X Ray of Hip and Pelvis was unremarkable. Extensive conversation with the patient concerning use of narcotic pain medication. Patient stated that her pain level was 8/10 at the time of exam but she was showing NO signs of distress/uncomfortability and carrying a full conversation with us. I explained to patient that her current status did not require narcotic pain medication and this was discontinued. Start clear liquid diet once patient starts to ask for food and her pain level continues to decline. Continue Librium taper. Trev Chirinos D.O.
[2017-05-28] MEDS ORDERED: Potassium Chloride 20 mEq ER Tab PO ONE (10:55)
--- NOTE | 2017-05-28 11:41 | PCM.PYCHPN ---
Psychiatric Progress Note - Psychiatric Progress Note Patient seen today, length of contact: 16 min Patient Chief Complaint: "I still have pain" Problems Identified/Issues Discussed: She is seen, case discussed and chart and labs reviewed. She is seen as a consult today b/c she is transferred to medicine for pancreatitis. Doing better - still has some pain and asking for painkillers Lipase dropped Detox is ending in a day or so No breakthru sxs Suport given Follow is set for an IOP and appointment is next week Psych will sign off Medication Change: Yes (detox chnages daily) Medical Record Reviewed: Yes Mental Status Examination - Cognitive Function Orientation: Person, Place, Situation, Time Memory: Intact Attention: WNL Concentration: WNL Association: WNL Fund of Knowledge: WNL - Mood Mood: Anxious - Affect Affect: Constricted - Speech Speech: Appropriate - Formal Thought Process Formal Thought Process: No Impairment - Suicidal Ideation Suicidal Ideation: No - Homicidal Ideation Homicidal Ideation: No Goal/Treatment Plan - Goal/Treatment Plan Need for Continued Stay: Discharge may exacerbated symptoms, Severe functional impairment Progress Toward Problem(s) and Goals/Treatment Plan: Librium detox ending soon As needed medications Gabapentin for augmentation Continue other meds but klonopin - she agreed Supportive therapy and psychoeducation HI for abstinence psych will sign off
--- NOTE | 2017-05-28 12:00 | RAD ---
PROCEDURE: Radiographs of the pelvis and bilateral hips HISTORY: s/p fall COMPARISON: CT scan of the abdomen and pelvis dated 05/23/2017. FINDINGS: BONES: Pelvis: Unremarkable. Right hip:Unremarkable. Left hip:Unremarkable. JOINTS: Right hip: Unremarkable. Left hip: Unremarkable. Sacroiliac Joints: Unremarkable. Pubic symphysis: Unremarkable. SOFT TISSUES: Normal. OTHER FINDINGS: None. IMPRESSION: Unremarkable radiographs of the hips and pelvis.
[2017-05-29] MEDS: Lactated Ringer's 1,000 ML IV SCH ×3 (04:25→19:53)
[2017-05-29 06:35] LABS: BASO % 0.6 % (0.0-2.0); EOS # 0.1 K/uL (0.0-0.7); EOS % 3.4 % (0.0-4.0); HEMOGLOBIN 13.1 g/dL (11.0-16.0); LYMPH % 25.8 % (20.0-40.0); MEAN CELL VOLUME 98.1 fL (81.0-99.0); MEAN CORPUSCULAR HEMOGLOBIN 34.7 pg (27.0-31.0); MEAN CORPUSCULAR HGB CONC 35.3 g/dL (33.0-37.0); MEAN PLATELET VOLUME 9.6 fL (7.2-11.7); MONO # 0.3 K/uL (0.0-0.8); MONO % 8.5 % (0.0-10.0); NEUT # 2.4 K/uL (1.8-7.0); NEUT % 61.7 % (50.0-75.0); NRBC % 0.1 % (0.0-2.0); RBC 3.77 Mil/uL (3.80-5.20); RED CELL DISTRIBUTION WIDTH 14.1 % (11.5-14.5); WHITE BLOOD COUNT 3.9 K/uL (4.8-10.8)
[2017-05-29 06:47] LABS: ALB/GLOB RATIO 1.2 (1.0-2.1); ALBUMIN 3.4 g/dL (3.5-5.0); ALT/SGPT 30 U/L (9-52); AST/SGOT 46 U/L (14-36); BLOOD UREA NITROGEN 5 mg/dL (7-17); CALCIUM 8.9 mg/dl (8.6-10.4); GFR AFRICAN-AMERICAN > 60; GFR NON-AFRICAN AMERICAN > 60; LIPASE 1447 U/L (23-300)
[2017-05-29] MEDS: Fluticasone-Salmeterol 250-50mcg Diskus INH SCH ×2 (07:53→19:39)
[2017-05-29] MEDS: Magnesium Oxide 400 mg Tab UD PO SCH (09:27)
[2017-05-29] MEDS: Metoprolol Succinate 50 mg XL Tab PO SCH ×2 (09:27→17:47)
[2017-05-29] MEDS: Multiple Vitamins Tab PO SCH (09:28)
[2017-05-29] MEDS: Pantoprazole 40 mg EC Tab PO SCH (09:28)
[2017-05-29] MEDS: Enoxaparin 40 mg Syringe SC SCH (09:31)
[2017-05-29] MEDS ORDERED: Pneumococcal 23-Valent Vaccine IM ONE (10:00)
--- NOTE | 2017-05-29 11:17 | CP.PCM.PN ---
<Kailyn Shea - Last Filed: 05/29/17 11:14> Subjective - Date & Time of Evaluation Date of Evaluation: 05/29/17 Time of Evaluation: 08:00 - Subjective Subjective: Patient seen and examined at bedside and in no acute distress. Patient says her abdominal pain is still present and is bad. Patient has been passing flatus, but has had no bowel movement. Patient also admits to some nausea. She is still NPO but states that she feels like she could try to eat some liquids. Patient denies shortness of breath or chest pain. Patient was asking again for Klonipin although she had been told by psychiatry that she will not be receiving this medications while she is here detoxing. Objective - Vital Signs/Intake and Output Vital Signs (last 24 hours): Temp Pulse Resp BP Pulse Ox 98.4 F 69 20 146/99 H 96 05/29/17 08:13 05/29/17 08:13 05/29/17 08:13 05/29/17 08:13 05/29/17 08:13 Intake and Output: 05/29/17 05/29/17 06:59 18:59 Intake Total 1120 Balance 1120 - Medications Medications: Current Medications Al Hydrox/Mg Hydrox/Simethicone (Maalox 30 Ml) 30 ml PO Q8 PRN PRN Reason: Indigestion / Heartburn Albuterol (Ventolin Hfa 90 Mcg/Actuation (8 G)) 1 puff INH RQ4 PRN PRN Reason: SOB Buspirone HCl (Buspar) 15 mg PO TID [facility] Last Admin: 05/29/17 09:30 Dose: 15 mg Chlordiazepoxide (Librium) 25 mg PO Q4H PRN PRN Reason: Alcohol Withdrawal Last Admin: 05/29/17 11:03 Dose: 25 mg Chlordiazepoxide (Librium) 25 mg PO Q12H [facility] PRN Reason: Taper Stop: 05/30/17 17:59 Last Admin: 05/29/17 05:48 Dose: 25 mg Clonidine HCl (Catapres) 0.1 mg PO Q4H PRN PRN Reason: Symptoms of alcohol withdrawl Last Admin: 05/27/17 16:21 Dose: 0.1 mg Enoxaparin Sodium (Lovenox) 40 mg SC DAILY [facility] Last Admin: 05/29/17 09:31 Dose: 40 mg Ergocalciferol (Drisdol 50,000 Intl Units Cap) 1 cap PO Q7D [facility] Last Admin: 05/26/17 15:56 Dose: 1 cap Escitalopram Oxalate (Lexapro) 20 mg PO DAILY [facility] Last Admin: 05/29/17 09:27 Dose: 20 mg Folic Acid (Folic Acid) 1 mg PO DAILY [facility] Last Admin: 05/29/17 09:28 Dose: 1 mg Gabapentin (Neurontin) 400 mg PO TID [facility] Last Admin: 05/29/17 09:28 Dose: 400 mg Hydroxyzine HCl (Atarax) 25 mg PO Q4H PRN PRN Reason: Anxiety Last Admin: 05/29/17 09:39 Dose: 25 mg Lactated Ringer's (Lactated Ringer's) 1,000 mls @ 125 mls/hr IV .Q8H [facility] Last Admin: 05/29/17 04:25 Dose: Not Given Magnesium Oxide (Mag-Ox) 400 mg PO DAILY [facility] Last Admin: 05/29/17 09:27 Dose: 400 mg Metoprolol Succinate (Toprol Xl) 50 mg PO BID [facility] Last Admin: 05/29/17 09:27 Dose: 50 mg Mirtazapine (Remeron) 30 mg PO HS [facility] Last Admin: 05/28/17 21:37 Dose: 30 mg Multivitamins (Hexavitamin) 1 tab PO DAILY [facility] Last Admin: 05/29/17 09:28 Dose: 1 tab Nicotine (Nicoderm Cq) 1 patch TD DAILY [facility] Last Admin: 05/29/17 09:30 Dose: 1 patch Ondansetron HCl (Zofran Tab) 4 mg PO Q8H PRN PRN Reason: Nausea/Vomiting Last Admin: 05/28/17 09:20 Dose: 4 mg Pantoprazole Sodium (Protonix Ec Tab) 40 mg PO DAILY [facility] Last Admin: 05/29/17 09:28 Dose: 40 mg Fluticasone/Salmeterol (Advair Diskus 250/50) 1 puff INH RQ12 [facility] Last Admin: 05/29/17 07:53 Dose: 1 puff Thiamine HCl (Vitamin B1 Tab) 100 mg PO DAILY [facility] Last Admin: 05/29/17 09:28 Dose: 100 mg Trazodone HCl (Desyrel) 100 mg PO HS PRN PRN Reason: Insomnia - Labs Labs: 05/29/17 06:17 05/29/17 06:17 - Constitutional Appears: Non-toxic - Head Exam Head Exam: ATRAUMATIC, NORMAL INSPECTION - Eye Exam Eye Exam: EOMI - ENT Exam ENT Exam: Normal Exam - Respiratory Exam Respiratory Exam: Clear to Ausculation Bilateral, NORMAL BREATHING PATTERN. absent: Respiratory Distress - Cardiovascular Exam Cardiovascular Exam: REGULAR RHYTHM, +S1, +S2 - GI/Abdominal Exam GI & Abdominal Exam: Soft, Tenderness, Normal Bowel Sounds. absent: Distended, Firm, Guarding - Extremities Exam Extremities Exam: Normal Inspection - Back Exam Back Exam: CVA tenderness (L), NORMAL INSPECTION. absent: paraspinal tenderness - Neurological Exam Neurological Exam: Alert, Awake, CN II-XII Intact, Normal Gait, Oriented x3 Neuro motor strength exam: Left Upper Extremity: 5, Right Upper Extremity: 5, Left Lower Extremity: 5, Right Lower Extremity: 5 - Psychiatric Exam Psychiatric exam: Normal Affect, Normal Mood - Skin Skin Exam: Dry, Intact, Normal Color, Warm Assessment and Plan - Assessment and Plan (Free Text) Assessment: Alcohol Withdrawal Psych consulted, Dr. Lockwood, help appreciated continue meds as prescribed by psych: Patient is to complete librium taper after today Clonidine .1mg po q4h prn Folic acid 1mg po daily Atarax 25mg po q4h prn Mag-ox 400mg po daily Mirtazapine 30mg po HS Multivitamins Zofran 4mg po q8h prn Thiamine 100mg po HS prn Trazodone 100mg po hs prn Pancreatitis Lipase dowtrending 05/27/17: Lipase: 2891 Will try liquid diet today LR @125cc/hr COPD/ Chronic bronchitis likely secondary to smoking history Albuterol inh Advair 250/50 inh 2 puffs BID Depression Buspar 15mg po TID Lexapro 20mg po daily Tobacco abuse Nicotine patch S/P Fall hip and pelvis xrays - unremarkable, no evidence of fracture or acute injury Vitamin D deficiency Vit D 13.7 given 50,000u on 05/26/17 Prophylaxis SCDs Protonix 40mg po daily Patient was again asking for Klonipin. She was told by psychiatry many times and this is also documented in EMR that patient should not be receiving this while she is detoxing due to safety. Patient became upset. She was informed that she could leave [facility] if she was unhappy about this decision. <Maximino Cameron H - Last Filed: 05/29/17 12:17> Objective - Vital Signs/Intake and Output Vital Signs (last 24 hours): Temp Pulse Resp BP Pulse Ox 98.4 F 69 20 146/99 H 96 05/29/17 08:13 05/29/17 08:13 05/29/17 08:13 05/29/17 08:13 05/29/17 08:13 Intake and Output: 05/29/17 05/29/17 06:59 18:59 Intake Total 1120 Balance 1120 - Medications Medications: Current Medications Al Hydrox/Mg Hydrox/Simethicone (Maalox 30 Ml) 30 ml PO Q8 PRN PRN Reason: Indigestion / Heartburn Albuterol (Ventolin Hfa 90 Mcg/Actuation (8 G)) 1 puff INH RQ4 PRN PRN Reason: SOB Buspirone HCl (Buspar) 15 mg PO TID [facility] Last Admin: 05/29/17 09:30 Dose: 15 mg Chlordiazepoxide (Librium) 25 mg PO Q4H PRN PRN Reason: Alcohol Withdrawal Last Admin: 05/29/17 11:03 Dose: 25 mg Chlordiazepoxide (Librium) 25 mg PO Q12H [facility] PRN Reason: Taper Stop: 05/30/17 17:59 Last Admin: 05/29/17 05:48 Dose: 25 mg Clonidine HCl (Catapres) 0.1 mg PO Q4H PRN PRN Reason: Symptoms of alcohol withdrawl Last Admin: 05/27/17 16:21 Dose: 0.1 mg Enoxaparin Sodium (Lovenox) 40 mg SC DAILY [facility] Last Admin: 05/29/17 09:31 Dose: 40 mg Ergocalciferol (Drisdol 50,000 Intl Units Cap) 1 cap PO Q7D [facility] Last Admin: 05/26/17 15:56 Dose: 1 cap Escitalopram Oxalate (Lexapro) 20 mg PO DAILY [facility] Last Admin: 05/29/17 09:27 Dose: 20 mg Folic Acid (Folic Acid) 1 mg PO DAILY [facility] Last Admin: 05/29/17 09:28 Dose: 1 mg Gabapentin (Neurontin) 400 mg PO TID [facility] Last Admin: 05/29/17 09:28 Dose: 400 mg Hydroxyzine HCl (Atarax) 25 mg PO Q4H PRN PRN Reason: Anxiety Last Admin: 05/29/17 09:39 Dose: 25 mg Lactated Ringer's (Lactated Ringer's) 1,000 mls @ 125 mls/hr IV .Q8H [facility] Last Admin: 05/29/17 04:25 Dose: Not Given Magnesium Oxide (Mag-Ox) 400 mg PO DAILY [facility] Last Admin: 05/29/17 09:27 Dose: 400 mg Metoprolol Succinate (Toprol Xl) 50 mg PO BID [facility] Last Admin: 05/29/17 09:27 Dose: 50 mg Mirtazapine (Remeron) 30 mg PO HS [facility] Last Admin: 05/28/17 21:37 Dose: 30 mg Multivitamins (Hexavitamin) 1 tab PO DAILY [facility] Last Admin: 05/29/17 09:28 Dose: 1 tab Nicotine (Nicoderm Cq) 1 patch TD DAILY [facility] Last Admin: 05/29/17 09:30 Dose: 1 patch Ondansetron HCl (Zofran Tab) 4 mg PO Q8H PRN PRN Reason: Nausea/Vomiting Last Admin: 05/28/17 09:20 Dose: 4 mg Pantoprazole Sodium (Protonix Ec Tab) 40 mg PO DAILY [facility] Last Admin: 05/29/17 09:28 Dose: 40 mg Fluticasone/Salmeterol (Advair Diskus 250/50) 1 puff INH RQ12 [facility] Last Admin: 05/29/17 07:53 Dose: 1 puff Thiamine HCl (Vitamin B1 Tab) 100 mg PO DAILY [facility] Last Admin: 05/29/17 09:28 Dose: 100 mg Trazodone HCl (Desyrel) 100 mg PO HS PRN PRN Reason: Insomnia - Labs Labs: 05/29/17 06:17 05/29/17 06:17 Attending/Attestation - Attestation I have personally seen and examined this patient.: Yes I have fully participated in the care of the patient.: Yes I have reviewed all pertinent clinical information, including history, physical exam and plan: Yes Notes (Text): 05/29/17 12:11 Patient was seen and examined by me. Agree with the above note by the medical doctor nuclear medicine. The patient was walking around in the room and later into the hallway on her own. She did not appear to be in any acute distress when I saw her. When I first saw her, I had not yet reviewed the medical notes and so she asked me if she could be given klonopin TID and I said to her I was ok with this, however I then later reviewed the notes from my colleagues as well as psychiatry who have been specifically writing that she has been asking them this and they have felt that this should not be given. I came back to the room and explained to the patient we would not be giving her the klonopin and we had a long discussion. She later began coming out into the hallway to question me further and I explained that we were really sorry but that if she did not want to stay here because we would not be giving her klonopin - then we would not be upset if she wanted to leave. She decided she would stay another day. Later we also had a phone conversation as well since she was persistent with the RN about getting Klonopin. And again I disucssed with her over the phone that we would not be giving this. Only the PRN Libirum for now which was already a previous order. Patient explains that she is hoping to leave possibly by tomorrow. thank you Maximino Cameron
[2017-05-30] MEDS: Lactated Ringer's 1,000 ML IV SCH ×2 (03:59→12:55)
[2017-05-30] MEDS: Fluticasone-Salmeterol 250-50mcg Diskus INH SCH (07:26)
[2017-05-30 08:47] VITALS: BP 153/96; PULSE 75; TEMP 97.3; O2SAT 97
[2017-05-30 08:59] LABS: BASO % 0.4 % (0.0-2.0); EOS # 0.1 K/uL (0.0-0.7); EOS % 2.9 % (0.0-4.0); HEMOGLOBIN 13.2 g/dL (11.0-16.0); LYMPH # 0.9 K/uL (1.0-4.3); LYMPH % 25.7 % (20.0-40.0); MEAN CELL VOLUME 98.2 fL (81.0-99.0); MEAN CORPUSCULAR HGB CONC 34.6 g/dL (33.0-37.0); MEAN PLATELET VOLUME 9.4 fL (7.2-11.7); MONO # 0.4 K/uL (0.0-0.8); MONO % 10.2 % (0.0-10.0); NEUT # 2.2 K/uL (1.8-7.0); NEUT % 60.8 % (50.0-75.0); RBC 3.89 Mil/uL (3.80-5.20); WHITE BLOOD COUNT 3.7 K/uL (4.8-10.8)
[2017-05-30 09:05] LABS: ALB/GLOB RATIO 1.3 (1.0-2.1); ALBUMIN 3.7 g/dL (3.5-5.0); ALT/SGPT 25 U/L (9-52); AST/SGOT 50 U/L (14-36); BLOOD UREA NITROGEN 2 mg/dL (7-17); CALCIUM 9.3 mg/dl (8.6-10.4); GFR AFRICAN-AMERICAN > 60; GFR NON-AFRICAN AMERICAN > 60; LIPASE 1474 U/L (23-300)
[2017-05-30] MEDS: Multiple Vitamins Tab PO SCH (09:22)
[2017-05-30] MEDS: Enoxaparin 40 mg Syringe SC SCH (09:22)
[2017-05-30] MEDS: Pantoprazole 40 mg EC Tab PO SCH (09:22)
[2017-05-30] MEDS: Magnesium Oxide 400 mg Tab UD PO SCH (09:22)
[2017-05-30] MEDS: Metoprolol Succinate 50 mg XL Tab PO SCH (09:27)
--- NOTE | 2017-05-30 12:09 | CP.PCM.DIS ---
<Kailyn Shea - Last Filed: 05/30/17 14:39> Provider - Provider Date of Admission: 05/25/17 13:35 Attending physician: Son Barrett MD Primary care physician: Dr. Molina Consults: none Time Spent in preparation of Discharge (in minutes): 35 Diagnosis - Discharge Diagnosis (1) Pancreatitis, alcoholic, acute Status: Acute (2) Alcohol abuse Status: Acute Hospital Course - Lab Results Lab Results: Most Recent Lab Values WBC 3.7 K/uL (4.8-10.8) L 05/30/17 08:35 RBC 3.89 Mil/uL (3.80-5.20) 05/30/17 08:35 Hgb 13.2 g/dL (11.0-16.0) 05/30/17 08:35 Hct 38.2 % (34.0-47.0) 05/30/17 08:35 MCV 98.2 fL (81.0-99.0) 05/30/17 08:35 MCH 34.0 pg (27.0-31.0) H 05/30/17 08:35 MCHC 34.6 g/dL (33.0-37.0) 05/30/17 08:35 RDW 14.0 % (11.5-14.5) 05/30/17 08:35 Plt Count 231 K/uL (130-400) 05/30/17 08:35 MPV 9.4 fL (7.2-11.7) 05/30/17 08:35 Neut % (Auto) 60.8 % (50.0-75.0) 05/30/17 08:35 Lymph % (Auto) 25.7 % (20.0-40.0) 05/30/17 08:35 Hanson % (Auto) 10.2 % (0.0-10.0) H 05/30/17 08:35 Eos % (Auto) 2.9 % (0.0-4.0) 05/30/17 08:35 Baso % (Auto) 0.4 % (0.0-2.0) 05/30/17 08:35 Neut # (Auto) 2.2 K/uL (1.8-7.0) 05/30/17 08:35 Lymph # (Auto) 0.9 K/uL (1.0-4.3) L 05/30/17 08:35 Hanson # (Auto) 0.4 K/uL (0.0-0.8) 05/30/17 08:35 Eos # (Auto) 0.1 K/uL (0.0-0.7) 05/30/17 08:35 Baso # (Auto) 0.0 K/uL (0.0-0.2) 05/30/17 08:35 Sodium 139 mmol/L (132-148) 05/30/17 08:35 Potassium 3.9 mmol/L (3.6-5.2) 05/30/17 08:35 Chloride 100 mmol/L (98-107) 05/30/17 08:35 Carbon Dioxide 29 mmol/L (22-30) 05/30/17 08:35 Anion Gap 14 (10-20) 05/30/17 08:35 BUN 2 mg/dL (7-17) L 05/30/17 08:35 Creatinine 0.6 mg/dL (0.7-1.2) L 05/30/17 08:35 Est GFR ( Amer) > 60 05/30/17 08:35 Est GFR (Non-Af Amer) > 60 05/30/17 08:35 Random Glucose 114 mg/dL (65-105) H 05/30/17 08:35 Calcium 9.3 mg/dl (8.6-10.4) 05/30/17 08:35 Phosphorus 4.0 mg/dL (2.5-4.5) 05/30/17 08:35 Magnesium 1.9 mg/dL (1.6-2.3) 05/30/17 08:35 Total Bilirubin 0.8 mg/dL (0.2-1.3) 05/30/17 08:35 AST 50 U/L (14-36) H 05/30/17 08:35 ALT 25 U/L (9-52) 05/30/17 08:35 Alkaline Phosphatase 49 U/L (38-126) 05/30/17 08:35 Total Protein 6.7 g/dL (6.3-8.3) 05/30/17 08:35 Albumin 3.7 g/dL (3.5-5.0) 05/30/17 08:35 Globulin 2.9 gm/dL (2.2-3.9) 05/30/17 08:35 Albumin/Globulin Ratio 1.3 (1.0-2.1) 05/30/17 08:35 Amylase 68 U/L (30-110) 05/28/17 07:36 Lipase 1474 U/L (23-300) H 05/30/17 08:35 25-OH Vitamin D Total 13.7 NG/ML (30.0-100.0) L 05/26/17 10:56 TSH 3rd Generation 1.16 mIU/L (0.46-4.68) 05/26/17 10:56 Urine Color Straw (YELLOW) 05/25/17 12:22 Urine Clarity Clear (Clear) 05/25/17 12:22 Urine pH 7.0 (5.0-8.0) 05/25/17 12:22 Ur Specific [place] 1.003 (1.003-1.030) 05/25/17 12:22 Urine Protein Negative mg/dL (NEGATIVE) 05/25/17 12:22 Urine Glucose (UA) Normal mg/dL (Normal) 05/25/17 12:22 Urine Ketones Trace mg/dL (NEGATIVE) 05/25/17 12:22 Urine Blood Negative (NEGATIVE) 05/25/17 12:22 Urine Nitrate Negative (NEGATIVE) 05/25/17 12:22 Urine Bilirubin Negative (NEGATIVE) 05/25/17 12:22 Urine Urobilinogen Normal mg/dL (0.2-1.0) 05/25/17 12:22 Ur Leukocyte Esterase Neg Thaddeus/uL (Negative) 05/25/17 12:22 Ur Squamous Epith Cells < 1 /hpf (0-5) 05/25/17 12:22 Urine HCG, Qual Negative (NEGATIVE) 05/25/17 12:22 Urine Opiates Screen Negative (NEGATIVE) 05/25/17 12:22 Urine Methadone Screen Negative (NEGATIVE) 05/25/17 12:22 Ur Barbiturates Screen Negative (NEGATIVE) 05/25/17 12:22 Ur Phencyclidine Scrn Negative (NEGATIVE) 05/25/17 12:22 Ur Amphetamines Screen Negative (NEGATIVE) 05/25/17 12:22 U Benzodiazepines Scrn Negative (NEGATIVE) 05/25/17 12:22 U Oth Cocaine Metabols Negative (NEGATIVE) 05/25/17 12:22 U Cannabinoids Screen Positive (NEGATIVE) H 05/25/17 12:22 Alcohol, Quantitative 247 mg/dl (0-10) H 05/25/17 12:34 - Hospital Course Hospital Course: Primary Doctor: Dr. Molina Past Medical History: pancreatitis- 1 year ago, patient spent 8 days in [facility] in [place]. Hypertension, anxiety, depression Past Surgical: 2 c-sections 29, 26 years ago. Colonoscopy and endoscopy 1 year ago Allergies: denies Hospitalizations: none other than surgical history Family history: father- DM, Colon CA in his 60's, Mother- bilateral breast cancer Social: Tobacco- 1 pack/day for 37 years, Alcohol 10-15 airplane bottles of liquor/day for 4-5 years Drugs- marijuana 1"puff" per day since the , denies intravenous or other illicit drug use Living- lives with , is unemployed On admission: Patient was admitted to detox unit for alcohol but medicine was consulted. 51 year old female with past medical history of pancreatitis, hypertension, anxiety, depression, and alcohol use disorder presents in detox floor with severe abdominal pain and one episode of vomiting in the morning. Patient has an extensive history of alcohol abuse stating she began drinking at age 15. Her drinking escalated dramatically over the past four years after she was attacked by her neighbors dog requiring 52 stitches on her arms and neck. Patient states she currently drinks 10-15 "airplane" bottles of alcohol daily. Patient began drinking alcohol at age 15 and drank continuously to a lesser extent up until 4 years ago. Patient's longest period of sobriety was in 1991 for 2 years while trying to conceive. Her latest period of sobriety was 90 days three years ago. Patient states she has back pain which began on Wednesday after a fall during a drunken episode. She came to the hospital for detox that day and had a CT abdomen and pelvis done while she awaited placement in the detox unit which showed mild bladder wall thickening but no acute changes of the pancreas. Patient left AMA that day due to feeling as though the transfer was taking too long. Patient returned to the hospital this Wednesday being admitted straight to detox. Her abdominal pain began yesterday. Patient describes the pain as sharp, located throughout her abdomen but particularly in the epigastric area, rates it as a 10/10 which wraps along both flanks and radiates to back. Patient has a hard time differentiating this pain from the pain she had due to the fall over the weekend. Patient denies any alleviated or precipitating factors. Patient states she has been vomiting a "white-green phlegm" for 3 weeks, usually once per day in the morning. Patient had one episode of emesis this morning with additional dry heaves throughout the day. Patient states her post- nasal drip incites the vomiting and denies any alleviating factors. Currently patient is calm and displays mild discomfort likely related to abdominal pain and withdrawal symptoms. During hospital stay: Patient was transferred to the medical floors for treatment of acute pancreatitis secondary to alcohol use. Lipase was first 2891 then trended down. Patient still with slight discomfort but pain has improved after aggressive fluid hydration was given. Patient is now tolerating full liquid diet. She was councseleld to stop drinking and smoking. She is to continue her home mecdications. She was given Advair for her COPD and also started on vitamin D treatment weekly for low vitamin D level. Patient is stable for discharge home today. She is to follow up with her primary care Dr. Molina tomorrow as planned. She is to also follow up with psychiatry or ask her primary for referral to psychiatry outpatient. She is also to stop drinking alcohol and is encouraged to attend rehab or outpatient programs. Patient is also to quit smoking. Patient is to continue all of her current medications. Patient is to take vitamin D one by mouth weekly for 3-4 months. She will be given a one month supply upon discharge but should ask her primary doctor for more refills. (Last dose 05/26, should take again on 06/02 and weekly thereafter). Scprits were sent to [facility] pharmacy in [place] as requested by the patient. Patient is to return to the ER if symptoms return. All instructions explained to the patient and she agrees. (This is only a summary of hospital events. Please refer to EMR for full admission details) Discharge Exam - Head Exam Head Exam: ATRAUMATIC, NORMAL INSPECTION - Eye Exam Eye Exam: EOMI, Normal appearance, PERRL Pupil Exam: NORMAL ACCOMODATION - Respiratory Exam Respiratory Exam: Decreased Breath Sounds, NORMAL BREATHING PATTERN. absent: Respiratory Distress - Cardiovascular Exam Cardiovascular Exam: REGULAR RHYTHM, +S1, +S2 - GI/Abdominal Exam GI & Abdominal Exam: Normal Bowel Sounds, Soft, Tenderness (mild lower quadrants ). absent: Distended, Firm, Guarding - Extremities Exam Extremities exam: normal inspection - Back Exam Back exam: NORMAL INSPECTION - Neurological Exam Neurological exam: Alert, CN II-XII Intact, Normal Gait, Oriented x3 - Psychiatric Exam Psychiatric exam: Normal Affect, Normal Mood - Skin Skin Exam: Dry, Intact, Normal Color, Warm Discharge Plan - Discharge Medications Prescriptions: Ergocalciferol [Drisdol 50,000 Intl Units Cap] 1 cap PO Q7D #4 cap Pantoprazole [Protonix EC Tab] 40 mg PO DAILY #30 ect Thiamine [Vitamin B1 Tab] 100 mg PO DAILY #30 tab - Follow Up Plan Condition: STABLE Disposition: HOME/ ROUTINE Instructions: Pancreatitis (DC) Additional Instructions: Patient is stable for discharge home today. She is to follow up with her primary care Dr. Molina tomorrow as planned. She is to also follow up with psychiatry or ask her primary for referral to psychiatry outpatient. She is also to stop drinking alcohol and is encouraged to attend rehab or outpatient programs. Patient is also to quit smoking. Patient is to continue all of her current medications. Patient is to take vitamin D one by mouth weekly for 3-4 months. She will be given a one month supply upon discharge but should ask her primary doctor for more refills. (Last dose 05/26, should take again on 06/02 and weekly thereafter). Scprits were sent to [facility] pharmacy in [place] as requested by the patient. Patient is to return to the ER if symptoms return. All instructions explained to the patient and she agrees. Discharge Hotline Numbers: [place] [facility] 24 Hour Hotline: 8- HELP (7779) AA- Alcoholics Anonymous 24 Hour Hotline: 0-723-014- 6843 NA- Narcotics Anonymous 24 Hour Hotline: [place] [facility] Hotline - [place] Quitline If needed you can reach the detox unit at Avoid all mood and mind altering substances including alcohol. Make every effort to make 90 meetings in 90 days and obtain a sponsor and get involved in 12 step recovery. Follow up with you primary doctor for your medical needs Nutrition: Eat balanced meals incorporating fruits, vegetables and protein. Drink plenty of water throughout the day at least 8 to 10 cups. Sleep is extremely important in your recovery. Follow Up Appointments: Pt has an appointment on 06-01-17@2pm [facility] [address] [place] [id number] [address] Transportation: <Maximino Cameron H - Last Filed: 05/30/17 17:26> Provider - Provider Date of Admission: 05/25/17 13:35 Attending physician: Son Barrett MD [facility] Course - Lab Results Lab Results: Most Recent Lab Values WBC 3.7 K/uL (4.8-10.8) L 05/30/17 08:35 RBC 3.89 Mil/uL (3.80-5.20) 05/30/17 08:35 Hgb 13.2 g/dL (11.0-16.0) 05/30/17 08:35 Hct 38.2 % (34.0-47.0) 05/30/17 08:35 MCV 98.2 fL (81.0-99.0) 05/30/17 08:35 MCH 34.0 pg (27.0-31.0) H 05/30/17 08:35 MCHC 34.6 g/dL (33.0-37.0) 05/30/17 08:35 RDW 14.0 % (11.5-14.5) 05/30/17 08:35 Plt Count 231 K/uL (130-400) 05/30/17 08:35 MPV 9.4 fL (7.2-11.7) 05/30/17 08:35 Neut % (Auto) 60.8 % (50.0-75.0) 05/30/17 08:35 Lymph % (Auto) 25.7 % (20.0-40.0) 05/30/17 08:35 Hanson % (Auto) 10.2 % (0.0-10.0) H 05/30/17 08:35 Eos % (Auto) 2.9 % (0.0-4.0) 05/30/17 08:35 Baso % (Auto) 0.4 % (0.0-2.0) 05/30/17 08:35 Neut # (Auto) 2.2 K/uL (1.8-7.0) 05/30/17 08:35 Lymph # (Auto) 0.9 K/uL (1.0-4.3) L 05/30/17 08:35 Hanson # (Auto) 0.4 K/uL (0.0-0.8) 05/30/17 08:35 Eos # (Auto) 0.1 K/uL (0.0-0.7) 05/30/17 08:35 Baso # (Auto) 0.0 K/uL (0.0-0.2) 05/30/17 08:35 Sodium 139 mmol/L (132-148) 05/30/17 08:35 Potassium 3.9 mmol/L (3.6-5.2) 05/30/17 08:35 Chloride 100 mmol/L (98-107) 05/30/17 08:35 Carbon Dioxide 29 mmol/L (22-30) 05/30/17 08:35 Anion Gap 14 (10-20) 05/30/17 08:35 BUN 2 mg/dL (7-17) L 05/30/17 08:35 Creatinine 0.6 mg/dL (0.7-1.2) L 05/30/17 08:35 Est GFR ( Amer) > 60 05/30/17 08:35 Est GFR (Non-Af Amer) > 60 05/30/17 08:35 Random Glucose 114 mg/dL (65-105) H 05/30/17 08:35 Calcium 9.3 mg/dl (8.6-10.4) 05/30/17 08:35 Phosphorus 4.0 mg/dL (2.5-4.5) 05/30/17 08:35 Magnesium 1.9 mg/dL (1.6-2.3) 05/30/17 08:35 Total Bilirubin 0.8 mg/dL (0.2-1.3) 05/30/17 08:35 AST 50 U/L (14-36) H 05/30/17 08:35 ALT 25 U/L (9-52) 05/30/17 08:35 Alkaline Phosphatase 49 U/L (38-126) 05/30/17 08:35 Total Protein 6.7 g/dL (6.3-8.3) 05/30/17 08:35 Albumin 3.7 g/dL (3.5-5.0) 05/30/17 08:35 Globulin 2.9 gm/dL (2.2-3.9) 05/30/17 08:35 Albumin/Globulin Ratio 1.3 (1.0-2.1) 05/30/17 08:35 Amylase 68 U/L (30-110) 05/28/17 07:36 Lipase 1474 U/L (23-300) H 05/30/17 08:35 25-OH Vitamin D Total 13.7 NG/ML (30.0-100.0) L 05/26/17 10:56 TSH 3rd Generation 1.16 mIU/L (0.46-4.68) 05/26/17 10:56 Urine Color Straw (YELLOW) 05/25/17 12:22 Urine Clarity Clear (Clear) 05/25/17 12:22 Urine pH 7.0 (5.0-8.0) 05/25/17 12:22 Ur Specific [place] 1.003 (1.003-1.030) 05/25/17 12:22 Urine Protein Negative mg/dL (NEGATIVE) 05/25/17 12:22 Urine Glucose (UA) Normal mg/dL (Normal) 05/25/17 12:22 Urine Ketones Trace mg/dL (NEGATIVE) 05/25/17 12:22 Urine Blood Negative (NEGATIVE) 05/25/17 12:22 Urine Nitrate Negative (NEGATIVE) 05/25/17 12:22 Urine Bilirubin Negative (NEGATIVE) 05/25/17 12:22 Urine Urobilinogen Normal mg/dL (0.2-1.0) 05/25/17 12:22 Ur Leukocyte Esterase Neg Thaddeus/uL (Negative) 05/25/17 12:22 Ur Squamous Epith Cells < 1 /hpf (0-5) 05/25/17 12:22 Urine HCG, Qual Negative (NEGATIVE) 05/25/17 12:22 Urine Opiates Screen Negative (NEGATIVE) 05/25/17 12:22 Urine Methadone Screen Negative (NEGATIVE) 05/25/17 12:22 Ur Barbiturates Screen Negative (NEGATIVE) 05/25/17 12:22 Ur Phencyclidine Scrn Negative (NEGATIVE) 05/25/17 12:22 Ur Amphetamines Screen Negative (NEGATIVE) 05/25/17 12:22 U Benzodiazepines Scrn Negative (NEGATIVE) 05/25/17 12:22 U Oth Cocaine Metabols Negative (NEGATIVE) 05/25/17 12:22 U Cannabinoids Screen Positive (NEGATIVE) H 05/25/17 12:22 Alcohol, Quantitative 247 mg/dl (0-10) H 05/25/17 12:34 Attending/Attestation - Attestation I have personally seen and examined this patient.: Yes I have fully participated in the care of the patient.: Yes I have reviewed all pertinent clinical information, including history, physical exam and plan: Yes Notes (Text): 05/30/17 17:20 Medical attending: Patient was seen and examined by me. Agree with the above note by the medical director The patient was actively walking in the hallway. She did not appear to be in any acute distress when we saw her. We had again a long conversation about her alcohol use. To be honest I do not know how seriously she is going to follow through with what we are telling her. She did tolerate her diet in the morning and later in at lunch time also tolerated this diet as well. She has been cautioned to gently advance her diet and work herself back up to more solid foods. The patient later on as she was leaving tried to get us to write RX for klonopin - this is despite us telling her that we would not be doing so, we had this conversation with her both yesterday and again when we saw her. She will need to follow up with her PMD if she really needs the klonopine - It needs to be documented that she was very calm and walking in the hallway without assistance this morning. thank you Maximino Cameron
== END 2017-05-30 15:00 | disposition home or self-care (01) | DRG 750 ==
LOC: C.ER 11:29 → C.7D 13:35 → C.3T 05-27 18:47
PROVIDERS: ADMIT Internal Medicine; ATTEND Internal Medicine
PROC: HZ2ZZZZ Detoxification Services for Substance Abuse Treatment (ICD-10-PCS; principal; 2017-05-25)
DX: F10.239 Alcohol dependence with withdrawal, unspecified (principal); J44.9 Chronic obstructive pulmonary disease, unspecified; K85.20 Alcohol induced acute pancreatitis without necrosis or infection; F12.90 Cannabis use, unspecified, uncomplicated; F17.200 Nicotine dependence, unspecified, uncomplicated; F32.9 Major depressive disorder, single episode, unspecified; I10 Essential (primary) hypertension; E55.9 Vitamin D deficiency, unspecified

== ENCOUNTER 2017-07-02 12:12 | Emergency (ER) | payer MEDICAID, OTHER ==
--- NOTE | 2017-07-02 13:13 | C.PDOC ---
History Of Present Illness 51 year old female presents to the ED requesting detox for alcohol abuse. Patient was prescreened prior to presenting to the ED. Patient denies SI/HI, hallucinations, fever, chills, CP, SOB, abdominal pain. Chief Complaint (Nursing): Substance Abuse History Per: Patient History/Exam Limitations: no limitations Onset/Duration Of Symptoms: Days Current Symptoms Are (Timing): Still Present Suicide/Self Injury Attempted (Context): None Modifying Factor(s): Alcohol Associated Symptoms: denies: Depression, Suicidal Thoughts, Suicidal Plan Involuntary Hold By: None Recent travel outside of the [place]: No Additional History Per: Patient Past Medical History Reviewed: Historical Data, Nursing Documentation, Vital Signs Vital Signs: Last Vital Signs Temp 98.8 F 07/02/17 15:03 Pulse 72 07/02/17 15:03 Resp 18 07/02/17 15:03 BP 103/69 07/02/17 15:03 Pulse Ox 100 07/02/17 15:25 - Medical History PMH: Anxiety, Depression, HTN, Pancreatitis Denies: Diabetes, Hepatitis, HIV, Seizures, Sexually Transmitted Disease Surgical History: - [facility] DETOXIFICATION SERVICES FOR SUBSTANCE ABUSE TREATMENT (05/25/17) Family History: States: Unknown Family Hx - Social History Hx Alcohol Use: Yes Hx Substance Use: Yes - Immunization History Hx Tetanus Toxoid Vaccination: No Hx Influenza Vaccination: No Hx Pneumococcal Vaccination: No Review Of Systems Constitutional: Negative for: Fever, Chills Cardiovascular: Negative for: Chest Pain Respiratory: Negative for: Shortness of Breath Gastrointestinal: Negative for: Vomiting, Abdominal Pain Skin: Negative for: Rash Psych: Negative for: Depression, Suicidal ideation Physical Exam - Physical Exam Appears: Non-toxic, No Acute Distress Skin: Normal Color, Warm, Dry Head: Atraumatic, Normacephalic Eye(s): bilateral: Normal Inspection Nose: No Discharge Oral Mucosa: Moist Neck: Normal ROM, Supple Chest: Symmetrical Cardiovascular: Rhythm Regular, No Murmur Respiratory: Normal Breath Sounds, No Rales, No Rhonchi, No Wheezing Gastrointestinal/Abdominal: Soft, No Tenderness, No Guarding, No Rebound Extremity: Normal ROM, No Tenderness, No Swelling Neurological/Psych: Oriented x3, Normal Speech Gait: Steady ED Course And Treatment - Laboratory Results Result Diagrams: 07/02/17 13:10 07/02/17 13:10 O2 Sat by Pulse Oximetry: 100 (ON RA) Pulse Ox Interpretation: Normal Progress Note: Plan: - Labs. - UA. - Crisis. Patient was initially seen by crisis, just waiting for her to sober up to be admitted. Patient changed her mind and states she wants to leave. Crisis team try to convince her to stay but patient still wants to leave. Disposition - Disposition Disposition: HOME/ ROUTINE Disposition Time: 15:25 Condition: STABLE Additional Instructions: Follow up with PMD within 1-2 days. Return to ED if feel worse. Instructions: Alcohol Abuse and Alcoholism (DC) Forms: [employer] (Malay) - Clinical Impression Clinical Impression: Alcohol abuse - PA / [employer]/DESIGNER / Resident Statement MD/DO has reviewed & agrees with the documentation as recorded. - Scribe Statement The provider has reviewed the documentation as recorded by the Scribe Gonzalez Munguia All medical record entries made by the Scribe were at my direction and personally dictated by me. I have reviewed the chart and agree that the record accurately reflects my personal performance of the history, physical exam, medical decision making, and the department course for this patient. I have also personally directed, reviewed, and agree with the discharge instructions and disposition.
[2017-07-02 13:17] LABS: BASO # 0.1 K/uL (0.0-0.2); BASO % 0.8 % (0.0-2.0); EOS # 0.2 K/uL (0.0-0.7); EOS % 2.3 % (0.0-4.0); HEMOGLOBIN 14.5 g/dL (11.0-16.0); LYMPH # 2.2 K/uL (1.0-4.3); LYMPH % 34.6 % (20.0-40.0); MEAN CELL VOLUME 95.3 fL (81.0-99.0); MEAN CORPUSCULAR HEMOGLOBIN 33.7 pg (27.0-31.0); MEAN CORPUSCULAR HGB CONC 35.3 g/dL (33.0-37.0); MEAN PLATELET VOLUME 8.2 fL (7.2-11.7); MONO # 0.3 K/uL (0.0-0.8); MONO % 5.2 % (0.0-10.0); NEUT # 3.7 K/uL (1.8-7.0); NEUT % 57.1 % (50.0-75.0); RBC 4.31 Mil/uL (3.80-5.20); RED CELL DISTRIBUTION WIDTH 14.1 % (11.5-14.5); WHITE BLOOD COUNT 6.5 K/uL (4.8-10.8)
[2017-07-02 13:20] LABS: HCG,QUALITATIVE URINE NEGATIVE (NEGATIVE)
[2017-07-02 13:25] LABS: SQUAMOUS EPITHIAL 1 /hpf (0-5); URINE BACTERIA RARE (<OCC); URINE BILIRUBIN NEGATIVE (NEGATIVE); URINE BLOOD NEGATIVE (NEGATIVE); URINE CLARITY Clear (Clear); URINE COLOR Straw (YELLOW); URINE GLUCOSE (UA) NORMAL (Normal); URINE LEUKOCYTE ESTERASE NEG Leu/uL (Negative); URINE PROTEIN NEGATIVE (NEGATIVE); URINE UROBILINOGEN NORMAL mg/dL (0.2-1.0)
[2017-07-02 13:36] LABS: ALB/GLOB RATIO 1.3 (1.0-2.1); ALBUMIN 3.9 g/dL (3.5-5.0); ALT/SGPT 43 U/L (9-52); AST/SGOT 43 U/L (14-36); BLOOD UREA NITROGEN 16 mg/dL (7-17); CALCIUM 9.3 mg/dl (8.6-10.4); GFR AFRICAN-AMERICAN > 60; GFR NON-AFRICAN AMERICAN > 60
[2017-07-02 14:04] LABS: BARBITURATES, UR NEGATIVE (NEGATIVE); BENZODIAZEPINES, UR NEGATIVE (NEGATIVE); OPIATES, UR NEGATIVE (NEGATIVE); PHENCYCLIDINE, UR NEGATIVE (NEGATIVE)
[2017-07-02 15:04] VITALS: BP 103/69; PULSE 72; RESP 18; TEMP 98.8
[2017-07-02 15:26] VITALS: O2SAT 100
== END 2017-07-02 15:28 | disposition home or self-care (01) ==
LOC: C.ER 12:12
DX: F10.10 Alcohol abuse, uncomplicated (principal); I10 Essential (primary) hypertension

== ENCOUNTER 2017-07-06 09:38 | Inpatient (IN) | payer MEDICAID, OTHER ==
--- NOTE | 2017-07-06 10:18 | C.PDOC ---
History Of Present Illness REQUESTING ETOH, BZ DETOX. PS PMD NO LONGER PRESCRIBING BZ DUE TO [employer] LAWS. PT HAS BEEN UNDERDOSING X 2 WEEKS, +INCR ANXIETY "WITHDRAWAL SX". LAST USE THIS MORNING. DENIES SI/SA, OTHER ASSOC DRUG USE EXAM NAD PSYCH CALM COOPERATIVE NO ACUTE INTOX NO ACTIVE PSYCHOSIS REMAINDER NEG Time Seen by Provider: 07/06/17 10:00 Chief Complaint (Nursing): Substance Abuse History Per: Patient History/Exam Limitations: no limitations Onset/Duration Of Symptoms: Days Associated Symptoms: Anxiety Past Medical History Reviewed: Historical Data, Nursing Documentation, Vital Signs Vital Signs: Last Vital Signs Temp 98.4 F 07/06/17 09:48 Pulse 76 07/06/17 09:48 Resp 18 07/06/17 09:48 BP 109/73 07/06/17 09:48 Pulse Ox 97 07/06/17 12:18 - Medical History PMH: Anxiety, Depression, HTN, Pancreatitis Denies: Diabetes, Hepatitis, HIV, Seizures, Sexually Transmitted Disease Surgical History: - [facility] DETOXIFICATION SERVICES FOR SUBSTANCE ABUSE TREATMENT (05/25/17) Family History: States: No Known Family Hx, Unknown Family Hx - Social History Hx Alcohol Use: Yes Hx Substance Use: Yes - Immunization History Hx Tetanus Toxoid Vaccination: No Hx Influenza Vaccination: No Hx Pneumococcal Vaccination: No Review Of Systems Except As Marked, All Systems Reviewed And Found Negative. Constitutional: Negative for: Fever, Chills Cardiovascular: Negative for: Chest Pain Respiratory: Negative for: Shortness of Breath Gastrointestinal: Negative for: Vomiting, Abdominal Pain Psych: Positive for: Anxiety Physical Exam - Physical Exam Appears: Non-toxic, No Acute Distress Skin: Normal Color, Warm, Dry Head: Atraumatic, Normacephalic Eye(s): bilateral: Normal Inspection Neck: Normal ROM, Supple Chest: Symmetrical Cardiovascular: Rhythm Regular Respiratory: Normal Breath Sounds Extremity: Normal ROM, No Deformity Neurological/Psych: Oriented x3, Normal Speech, Normal Cognition, Normal Motor, Normal Sensation, Other (calm, and cooperative; no active psychosis. ) ED Course And Treatment - Laboratory Results Result Diagrams: 07/06/17 10:30 07/06/17 10:30 O2 Sat by Pulse Oximetry: 97 (RA) Pulse Ox Interpretation: Normal Reevaluation Time: 12:18 Reassessment Condition: Unchanged (MED CLEAR FOR DETOX. CRISIS NOTIFIED) Disposition - Disposition Disposition: HOSPITALIZED Disposition Time: 12:37 Condition: STABLE Forms: [facility] (Slovenian) - POA Present On Arrival: None - Clinical Impression Clinical Impression: Alcohol use disorder, severe, dependence, Benzodiazepine abuse - Scribe Statement The provider has reviewed the documentation as recorded by the Scribe (Alayna Taylor) Provider Attestation: All medical record entries made by the Scribe were at my direction and personally dictated by me. I have reviewed the chart and agree that the record accurately reflects my personal performance of the history, physical exam, medical decision making, and the department course for this patient. I have also personally directed, reviewed, and agree with the discharge instructions and disposition. Decision To Admit - Pt Status Changed To: Hospital Disposition Of: Inpatient - Admit Certification Admit to Inpatient:: After my assessment, the patient will require hospitalization for at least two midnights. This is because of the severity of symptoms shown, intensity of services needed, and/or the medical risk in this patient being treated as an outpatient. - InPatient: Physician Admission Certification: I certify that this patient requires 2 or more midnights of care for the following reason:: SEE NOTE - . Bed Request Type: Detox Admitting Physician: Johanny Bermudez Patient Diagnosis: Alcohol use disorder, severe, dependence, Benzodiazepine abuse
[2017-07-06 10:34] LABS: BASO % 0.7 % (0.0-2.0); EOS # 0.1 K/uL (0.0-0.7); EOS % 1.3 % (0.0-4.0); HEMOGLOBIN 14.9 g/dL (11.0-16.0); LYMPH % 29.7 % (20.0-40.0); MEAN CELL VOLUME 95.4 fL (81.0-99.0); MEAN CORPUSCULAR HEMOGLOBIN 33.9 pg (27.0-31.0); MEAN CORPUSCULAR HGB CONC 35.5 g/dL (33.0-37.0); MEAN PLATELET VOLUME 8.3 fL (7.2-11.7); MONO # 0.3 K/uL (0.0-0.8); MONO % 5.2 % (0.0-10.0); NEUT # 4.2 K/uL (1.8-7.0); NEUT % 63.1 % (50.0-75.0); NRBC % 0.2 % (0.0-2.0); RBC 4.4 Mil/uL (3.80-5.20); RED CELL DISTRIBUTION WIDTH 14.6 % (11.5-14.5); WHITE BLOOD COUNT 6.7 K/uL (4.8-10.8)
[2017-07-06 10:46] LABS: ALB/GLOB RATIO 1.4 (1.0-2.1); ALBUMIN 4.4 g/dL (3.5-5.0); ALT/SGPT 36 U/L (9-52); AST/SGOT 41 U/L (14-36); BLOOD UREA NITROGEN 13 mg/dL (7-17); CALCIUM 9.3 mg/dl (8.6-10.4); GFR AFRICAN-AMERICAN > 60; GFR NON-AFRICAN AMERICAN > 60
[2017-07-06 11:03] LABS: SQUAMOUS EPITHIAL < 1 /hpf (0-5); URINE BILIRUBIN NEGATIVE (NEGATIVE); URINE BLOOD NEGATIVE (NEGATIVE); URINE CLARITY Clear (Clear); URINE COLOR Straw (YELLOW); URINE GLUCOSE (UA) NORMAL (Normal); URINE LEUKOCYTE ESTERASE NEG Leu/uL (Negative); URINE PROTEIN NEGATIVE (NEGATIVE); URINE UROBILINOGEN NORMAL mg/dL (0.2-1.0)
[2017-07-06 11:19] LABS: BARBITURATES, UR NEGATIVE (NEGATIVE); OPIATES, UR NEGATIVE (NEGATIVE); PHENCYCLIDINE, UR NEGATIVE (NEGATIVE)
[2017-07-06 12:08] LABS: BENZODIAZEPINES, UR POSITIVE (NEGATIVE)
--- NOTE | 2017-07-06 13:56 | PCM.PSYCH ---
Initial Psychiatric Evaluation - Initial Psychiatric Evaluation Type of Admission: Voluntary Legal Status: Capacity Chief Complaint (in patient's own words): "I relapsed" History of Present Illness and Precipitating Events: The pt is seen, chart reviewed and case discussed. Pt is a 51 year old female, living with her , has 2 adult children, unemployed. She came to ED requesting alcohol detox again. She was discharged in April afetr a transfer to medicine but she says she could not find a psychiatrist and her dr would not taper her off of her klonopin, nor would continue. She still takes 0.5 mg TID, though but she relapsed about 6 weeks ago and drinks 10-15 "airplane bottles" of liquor again. Pt reports drinking today, with total of 5 airplane bottles vodka, but typically used to drink up to 15 airplane bottles daily. She claims she decreased since last time. Pt states she has been drinking since the age of 15, but the drinking has become unmanageable for the last 5 years. Pt states the trigger for the worsening drinking was an incident where she was attacked by her neighbor's dog. Pt reports current w/d symptoms. Pt denies history of seizures, but states she has a history of blackouts. Pt also reports smoking marijuana every other day when she uses "a few puffs." Pt is interested in AA meetings and IOP following detox treatment. She is also considering Vivitrol. Past psych x: Pt denies S/I; H/I; A/V/T hallucinations and history of same. Pt denies history of psychiatric admissions and treatment, but has history of depression and anxiety. Medical hx: Pt states she is under the care of only a PMD, Dr.Saleem Carrillo. Pt reports that she is diagnosed with HTN, and "possibly vertigo" as pt experiences frequent dizzy spells. Pt also reports a history of pancreatitis, with past flare-up's. She feels OK today re GI. Family psych hx: Alcoholism Current Medications: Active Medications Generic Name Dose Route Start Last Admin Trade Name Freq PRN Reason Stop Dose Admin Chlordiazepoxide 25 mg 07/06/17 18:00 Librium PO 07/10/17 17:59 Q6 KARINA Taper Chlordiazepoxide 25 mg 07/06/17 13:46 Librium PO Q4H PRN Alcohol Withdrawal Clonidine HCl 0.1 mg 07/06/17 13:46 Catapres PO Q4H PRN Symptoms of alcohol withdrawl Folic Acid 1 mg 07/06/17 14:00 Folic Acid PO DAILY KARINA Multivitamins 1 tab 07/06/17 14:00 Hexavitamin PO DAILY KARINA Thiamine HCl 100 mg 07/06/17 14:00 Vitamin B1 Tab PO DAILY KARINA Trazodone HCl 50 mg 07/06/17 13:46 Desyrel PO HS PRN Insomnia Past Psychiatric History - Past Psychiatric History Previous Treatment History: None Pertinent Medical Hx (Current Medical&Sleep Prob, Allergies): Allergies Allergy/AdvReac Type Severity Reaction Status Date / Time No Known Allergies Allergy Unverified 05/23/17 20:30 Buspirone HCl 15 mg PO TID 05/23/17 Escitalopram [Lexapro] 20 mg PO DAILY 05/23/17 Metoprolol Succinate [Toprol XL] 50 mg PO BID 05/23/17 clonazePAM [Klonopin] 0.5 mg PO TID 05/23/17 Acyclovir [Zovirax] 400 mg PO TID PRN 05/25/17 Albuterol HFA [Ventolin HFA 90 mcg/actuation (8 g)] 0.09 mg IH PRN PRN 05/25/17 Clonidine HCl [Catapres] 0.1 mg PO TID 05/25/17 Gabapentin [Neurontin] 400 mg PO TID 05/25/17 Mirtazapine [Remeron] 30 mg PO HS 05/25/17 Naltrexone [Revia] 50 mg PO DAILY 05/25/17 Ondansetron ODT [Zofran ODT] 4 mg PO Q4 PRN 05/25/17 Ergocalciferol [Drisdol 50,000 Intl Units Cap] 1 cap PO Q7D #4 cap 05/30/17 Folic Acid 1 mg PO DAILY tab 05/30/17 Multivitamins [Hexavitamin] 1 tab PO DAILY tab 05/30/17 Ondansetron [Zofran Tab] 4 mg PO Q8H PRN tab 05/30/17 Pantoprazole [Protonix EC Tab] 40 mg PO DAILY #30 ect 05/30/17 Thiamine [Vitamin B1 Tab] 100 mg PO DAILY #30 tab 05/30/17 Melatonin 07/06/17 Review of Systems - Psychiatric Psychiatric: Abnormal Sleep Pattern, Anxiety, Difficulty Concentrating. absent : Hallucinations, Homicidal Ideation, Suicidal Ideation Mental Status Examination - Personal Presentation Personal Presentation: Looks stated age - Affect Affect: Constricted - Motor Activity Motor Activity: Calm - Reliability in Providing Information Reliability in Providing Information: Good - Speech Speech: Organized - Mood Mood: Anxious - Formal Thought Process Formal Thought Process: No Impairment - Cognitive Functions Orientation: Person, Place, Situation, Time Sensorium: Alert Attention/Concentration: Attentive Estimate of Intelligence: Average Judgement: Intact, as evidence by: Insight regarding need for hospitalization Memory: Recent intact, as evidence by: Ability to recall events of the day, Remote intact, as evidenced by: Abilit to recall sig. life events - Risk Risk: Withdrawal, Diminished functioning - Strength & Assets Inventory Strength & Assets Inventory: Cooperative - Limitations Limitations: Other DSM 5 DX - DSM 5 DSM 5 Diagnosis: Alcohol withdrawal Alcohol use d/o - severe ALIYAH Cannabis use d/o - severe - Recommended/Plan of Treatment Treatment Recommendations and Plan of Treatment: Librium detox Continue Lexapro and Buspar As needed medications Gabapentin for augmentation if needed Continue other meds but klonopin - she agreed She will consider long benzo detox as an outpatient if this fails All risks, benefits and alternatives of medications, including no medications, discussed and the patient understood and agreed. Attend groups and activities Supportive therapy and psychoeducation [place] for abstinence CBT for relapse prevention Encourage MAT Refer to rehab or IOP Attend self-help groups as well [place] for smoking cessation and patch if needed 33 min Projected ELOS: 5-6 days Prognosis: good w treatment - Smoking Cessation Smoking Cessation Initiated: Yes
--- NOTE | 2017-07-06 14:20 | PCM.BM ---
<Sylvia Barbour - Last Filed: 07/06/17 14:18> Treatment Plan Problems - Problems identified on initial assessmt potential for alcohol withdrawals Date Initiated: 07/06/17 Assessment reference: NA Status: Active Treatment assets and liabiliti Patient Assests: adapts well, cooperative, motivated, ADL independent, negotiates basic needs Patient Liabilities: substance abuse, medical problems - Milieu Protocol Maintain good personal hygiene: daily Encourage regular showers, daily Remind patient to perform daily oral care, daily Assist patient to perform ADL's Conduct patient checks and document Observation sheet: Q15 minutes Maintain personal safety: every shift Educate patient to report safety concerns to staff, every shift Monitor environment for contraband/sharps Medication safety: Monitor for expected outcome, potential side effects: every shift, Assess barriers to learning: every shift, Assess readiness for medication education: every shift Milieu Narrative: Librium detox As needed medications Gabapentin for augmentation Continue other meds but klonopin - she agreed All risks, benefits and alternatives of medications, including no medications, discussed and the patient understood and agreed. Attend groups and activities Supportive therapy and psychoeducation [place] for abstinence CBT for relapse prevention Encourage MAT Refer to rehab or IOP Attend self-help groups as well [place] for smoking cessation and patch if needed 33 min Discharge/Continuing Care - Treatment Team Participation Patient/Family/SO Statement: Librium detox As needed medications Gabapentin for augmentation Continue other meds but klonopin - she agreed All risks, benefits and alternatives of medications, including no medications, discussed and the patient understood and agreed. Attend groups and activities Supportive therapy and psychoeducation [place] for abstinence CBT for relapse prevention Encourage MAT Refer to rehab or IOP Attend self-help groups as well [place] for smoking cessation and patch if needed 33 min <Zulma John - Last Filed: 07/07/17 13:05> Family Contact Family involvement: Family/SO is involved Family contact: Patient agrees to contact Family contact name: Taiwo/ - Goals for Treatment Patient goals for treatment: Complete detox and transiton to [facility] [place] for therapy and medication monitoring. Discharge/Continuing Care - Education Needs Education Needs: Patient Medication, Patient Diagnosis/Disease Process, Patient Coping Skills, Patient Anger Management skills, Patient Placement options, Patient Community resources, Significant Other Medication, Significant Other Diagnosis/Disease Process, Significant Other Coping Skills, Significant Other Anger Management skills, Significant Other Placement options, Significant Other Community resources - Discharge Discharge Criteria: No longer exhibiting s/s of withdrawal, Reduction of target symptoms Discharge to:: Home, With Family - Treatment Team Participation Patient/Family/SO Statement: 07/07/17 13:06 "I wanna go to an outpatient program that has a psychiatrist..." Discussed with Family/SO: No Was Patient/Family/SO present at Treatment Team Meeting: Yes <Johanny Bermudez - Last Filed: 07/07/17 22:06> - Diagnosis (1) Alcohol use disorder, severe, dependence Status: Acute Interventions: 07/07/17 22:06 * Assess 7x/week regarding severity of withdrawal * Educate regarding risks, benefits, side effects and alternatives of medications * Use Motivational Interviewing for abstinence * Use CBT for relapse prevention * Medication management for withdrawal symptoms * Encourage medication assisted treatment *
[2017-07-06] MEDS: Multiple Vitamins Tab PO SCH (14:21)
[2017-07-07] MEDS: Multiple Vitamins Tab PO SCH (09:31)
[2017-07-07] MEDS: Metoprolol Succinate 50 mg XL Tab PO SCH ×2 (10:24→17:12)
--- NOTE | 2017-07-07 12:43 | PCM.PYCHPN ---
Psychiatric Progress Note - Psychiatric Progress Note Patient seen today, length of contact: 18 min Patient Chief Complaint: "I feel alright" Problems Identified/Issues Discussed: The pt is seen, chart reviewed, case discussed with staff. Support and psychoeducation given, CBT and [place] used briefly No new symptoms reported, improving slowly and needs more time No SEs from medications, risks discussed. After care discussed - wants to go back to [facility] or see a private psychiatrist Medication Change: Yes (detox changes daily) Medical Record Reviewed: Yes Mental Status Examination - Cognitive Function Orientation: Person, Place, Situation, Time Memory: Intact Attention: WNL Concentration: WNL Association: WNL Fund of Knowledge: WNL - Mood Mood: Anxious - Affect Affect: Constricted - Speech Speech: Appropriate - Formal Thought Process Formal Thought Process: No Impairment - Suicidal Ideation Suicidal Ideation: No - Homicidal Ideation Homicidal Ideation: No Goal/Treatment Plan - Goal/Treatment Plan Need for Continued Stay: Discharge may exacerbated symptoms, Severe functional impairment Progress Toward Problem(s) and Goals/Treatment Plan: Librium detox Continue Lexapro and Buspar As needed medications Gabapentin for augmentation if needed Continue other meds but klonopin - she agreed She will consider long benzo detox as an outpatient if this fails All risks, benefits and alternatives of medications, including no medications, discussed and the patient understood and agreed. Attend groups and activities Supportive therapy and psychoeducation [place] for abstinence CBT for relapse prevention Encourage MAT Refer to rehab or IOP Attend self-help groups as well [place] for smoking cessation and patch if needed
--- NOTE | 2017-07-08 08:56 | PCM.PYCHPN ---
Psychiatric Progress Note - Psychiatric Progress Note Patient seen today, length of contact: 16 min Patient Chief Complaint: "I am nervous" Problems Identified/Issues Discussed: The pt is seen, chart reviewed, case discussed with staff. She c/o anxiety about having to stop benzos Alternatives of treatment plan discussed, incl. seeing a private dr She agreed her detox is going on [place] NO breakthru sxs Support and psychoed given PA used Her son's situation discussed which is stress for her Medication Change: Yes (detox changes daily) Medical Record Reviewed: Yes Mental Status Examination - Cognitive Function Orientation: Person, Place, Situation, Time Memory: Intact Attention: WNL Concentration: WNL Association: WNL Fund of Knowledge: WNL - Mood Mood: Anxious - Affect Affect: Constricted - Speech Speech: Appropriate - Formal Thought Process Formal Thought Process: No Impairment - Suicidal Ideation Suicidal Ideation: No - Homicidal Ideation Homicidal Ideation: No Goal/Treatment Plan - Goal/Treatment Plan Need for Continued Stay: Discharge may exacerbated symptoms, Severe functional impairment Progress Toward Problem(s) and Goals/Treatment Plan: Librium detox Continue Lexapro and Buspar As needed medications Gabapentin for augmentation if needed Continue other meds but klonopin - she agreed She will consider long benzo detox as an outpatient if this fails All risks, benefits and alternatives of medications, including no medications, discussed and the patient understood and agreed. Attend groups and activities Supportive therapy and psychoeducation [place] for abstinence CBT for relapse prevention Encourage MAT Refer to rehab or IOP Attend self-help groups as well [place] for smoking cessation and patch if needed
[2017-07-08] MEDS: Metoprolol Succinate 50 mg XL Tab PO SCH ×2 (09:49→17:48)
[2017-07-08] MEDS: Multiple Vitamins Tab PO SCH (09:50)
[2017-07-09] MEDS: Multiple Vitamins Tab PO SCH (10:32)
[2017-07-09] MEDS: Metoprolol Succinate 50 mg XL Tab PO SCH ×2 (10:32→17:21)
--- NOTE | 2017-07-09 11:08 | PCM.PYCHPN ---
Psychiatric Progress Note - Psychiatric Progress Note Patient seen today, length of contact: 16 min Patient Chief Complaint: "I am not happy" Problems Identified/Issues Discussed: The pt is seen, chart reviewed, case discussed with staff. No issues with her detox but she is upset about some minor things ("no sugar left") and also about her after care [facility] told us that she did not see their psychiatrist bc she wouldn't give benzos to the pt But, pt says after 20+ years, she cannot stoop with 4-5 days of detox She will see Dr Lockwood as an outpt and likely do slow outpatient taper Medication Change: Yes (detox changes daily) Medical Record Reviewed: Yes Mental Status Examination - Cognitive Function Orientation: Person, Place, Situation, Time Memory: Intact Attention: WNL Concentration: WNL Association: WNL Fund of Knowledge: WNL - Mood Mood: Anxious - Affect Affect: Constricted - Speech Speech: Appropriate - Formal Thought Process Formal Thought Process: No Impairment - Suicidal Ideation Suicidal Ideation: No - Homicidal Ideation Homicidal Ideation: No Goal/Treatment Plan - Goal/Treatment Plan Need for Continued Stay: Discharge may exacerbated symptoms, Severe functional impairment Progress Toward Problem(s) and Goals/Treatment Plan: Librium detox Continue Lexapro and Buspar As needed medications Gabapentin for augmentation if needed Continue other meds but klonopin - she agreed She will consider long benzo detox as an outpatient if this fails All risks, benefits and alternatives of medications, including no medications, discussed and the patient understood and agreed. Attend groups and activities Supportive therapy and psychoeducation [place] for abstinence CBT for relapse prevention Encourage MAT Refer to rehab or IOP Attend self-help groups as well [place] for smoking cessation and patch if needed
--- NOTE | 2017-07-10 07:05 | PCM.PYCHDC ---
Mental Status Examination - Mental Status Examination Orientation: Person, Place, Situation, Time Memory: Intact Mood: Neutral Affect: Constricted Speech: Soft Attention: WNL Concentration: WNL Association: WNL Fund of Knowledge: WNL Formal Thought Process: No Impairment Description of patient's judgement and insight: good, fair Psychotic Thoughts and Behaviors: denies any AVH Suicidal Ideation: No Current Homicidal Ideation?: No Discharge Summary - Discharge Note Consultations:: List each consultation separately and include: 1. Reason for request. 2. Findings. 3. Follow-up Summary of Hospital Course include:: 1. Description of specific treatment plan utilized for patients during their course of treatmen. 2. Summarize the time- course for resolution of acute symptoms and/or regressed behaviors. 3. Describe issues identified and worked on during hospitalization. 4. Describe medication utilized. 5. Describe medical problems identified and treated. 6. Reassessment of suicide risk - Final Diagnosis (DSM 5) Condition upon Discharge: STABLE Disposition: HOME/ ROUTINE Prescriptions/Medication Reconciliation: Escitalopram [Lexapro] 10 mg PO DAILY #30 tab Gabapentin [Neurontin] 400 mg PO TID #90 cap QUEtiapine [Seroquel] 100 mg PO HS #30 tab
[2017-07-10] MEDS: Multiple Vitamins Tab PO SCH (09:05)
[2017-07-10] MEDS: Metoprolol Succinate 50 mg XL Tab PO SCH (09:05)
[2017-07-10 09:43] VITALS: BP 127/83; PULSE 71; RESP 18; TEMP 98.7; O2SAT 98
== END 2017-07-10 11:00 | disposition home or self-care (01) | DRG 751 ==
LOC: C.ER 09:38 → C.7D 12:37
PROVIDERS: ADMIT Psychiatry & Neurology Psychiatry; ATTEND Psychiatry & Neurology Psychiatry
PROC: HZ2ZZZZ Detoxification Services for Substance Abuse Treatment (ICD-10-PCS; principal; 2017-07-06)
PROC: HZ52ZZZ Individual Psychotherapy for Substance Abuse Treatment, Cognitive-Behavioral (ICD-10-PCS; 2017-07-06)
PROC: HZ59ZZZ Individual Psychotherapy for Substance Abuse Treatment, Supportive (ICD-10-PCS; 2017-07-06)
PROC: HZ56ZZZ Individual Psychotherapy for Substance Abuse Treatment, Psychoeducation (ICD-10-PCS; 2017-07-06)
PROC: HZ42ZZZ Group Counseling for Substance Abuse Treatment, Cognitive-Behavioral (ICD-10-PCS; 2017-07-06)
PROC: HZ46ZZZ Group Counseling for Substance Abuse Treatment, Psychoeducation (ICD-10-PCS; 2017-07-06)
PROC: GZHZZZZ Group Psychotherapy (ICD-10-PCS; 2017-07-06)
PROC: GZ58ZZZ Individual Psychotherapy, Cognitive-Behavioral (ICD-10-PCS; 2017-07-06)
PROC: GZ56ZZZ Individual Psychotherapy, Supportive (ICD-10-PCS; 2017-07-06)
DX: F10.230 Alcohol dependence with withdrawal, uncomplicated (principal); Y90.6 Blood alcohol level of 120-199 mg/100 ml; F12.20 Cannabis dependence, uncomplicated; F13.10 Sedative, hypnotic or anxiolytic abuse, uncomplicated; F41.1 Generalized anxiety disorder; I10 Essential (primary) hypertension

== ENCOUNTER 2017-10-15 09:56 | Inpatient (IN) | payer SELFPAY ==
[2017-10-15 11:12] LABS: BASO % 0.4 % (0.0-2.0); EOS # 0.1 K/uL (0.0-0.7); EOS % 1.9 % (0.0-4.0); HEMOGLOBIN 14.3 g/dL (11.0-16.0); LYMPH # 1.9 K/uL (1.0-4.3); LYMPH % 28.9 % (20.0-40.0); MEAN CELL VOLUME 93.6 fL (81.0-99.0); MEAN CORPUSCULAR HEMOGLOBIN 32.9 pg (27.0-31.0); MEAN CORPUSCULAR HGB CONC 35.1 g/dL (33.0-37.0); MEAN PLATELET VOLUME 8.4 fL (7.2-11.7); MONO # 0.3 K/uL (0.0-0.8); MONO % 5.3 % (0.0-10.0); NEUT # 4.1 K/uL (1.8-7.0); NEUT % 63.5 % (50.0-75.0); RBC 4.35 Mil/uL (3.80-5.20); RED CELL DISTRIBUTION WIDTH 13.1 % (11.5-14.5); WHITE BLOOD COUNT 6.5 K/uL (4.8-10.8)
[2017-10-15 11:17] LABS: SQUAMOUS EPITHIAL 4 /hpf (0-5); URINE BACTERIA RARE (<OCC); URINE BILIRUBIN 1+ (NEGATIVE); URINE BLOOD NEGATIVE (NEGATIVE); URINE CLARITY Hazy (Clear); URINE COLOR Amber (YELLOW); URINE GLUCOSE (UA) NORMAL (Normal); URINE LEUKOCYTE ESTERASE NEG Leu/uL (Negative); URINE PROTEIN 1+ mg/dL (NEGATIVE)
[2017-10-15 11:34] LABS: ALB/GLOB RATIO 1.5 (1.0-2.1); ALBUMIN 4.3 g/dL (3.5-5.0); ALT/SGPT 47 U/L (9-52); AST/SGOT 87 U/L (14-36); BLOOD UREA NITROGEN 17 mg/dL (7-17); CALCIUM 9.4 mg/dl (8.6-10.4); GFR NON-AFRICAN AMERICAN > 60
[2017-10-15 11:45] LABS: BARBITURATES, UR NEGATIVE (NEGATIVE); OPIATES, UR NEGATIVE (NEGATIVE); PHENCYCLIDINE, UR NEGATIVE (NEGATIVE)
[2017-10-15 12:50] LABS: BENZODIAZEPINES, UR POSITIVE (NEGATIVE)
--- NOTE | 2017-10-15 13:14 | C.PDOC ---
History Of Present Illness 52-year-old female, presents to the emergency department, prescreened for detox from alcohol. Pts last drink was yesterday. Denies any nausea/vomiting, SI/HI, or any other associated symptoms. No other complaints at this time. Time Seen by Provider: 10/15/17 10:02 Chief Complaint (Nursing): Substance Abuse History Per: Patient History/Exam Limitations: no limitations Current Symptoms Are (Timing): Still Present Past Medical History Reviewed: Historical Data, Nursing Documentation, Vital Signs Vital Signs: Last Vital Signs Temp 98.4 F 10/15/17 10:01 Pulse 85 10/15/17 10:01 Resp 20 10/15/17 10:01 BP 103/70 10/15/17 10:01 Pulse Ox 96 10/15/17 13:16 - Medical History PMH: Anxiety, Depression, HTN, Pancreatitis Denies: Diabetes Surgical History: - [facility] DETOXIFICATION SERVICES FOR SUBSTANCE ABUSE TREATMENT (07/06/17) GROUP ACTIVITY THERAPY TEACHER FOR SUBSTANCE ABUSE TREATMENT, PSYCHOEDUCATION (07/06/17) GROUP ACTIVITY THERAPY TEACHER FOR SUBSTANCE ABUSE, COGNITIVE BEHAVIORAL (07/06/17) GROUP PSYCHOTHERAPY (07/06/17) INDIV PSYCHOTHERAPY FOR SUBSTANCE ABUSE TREATMENT, SUPPORT (07/06/17) INDIV PSYCHOTHERAPY FOR SUBSTANCE ABUSE, COGNITIV BEHAVIORAL (07/06/17) INDIV PSYCHOTHERAPY FOR SUBSTANCE ABUSE, PSYCHOEDUCATION (07/06/17) INDIVIDUAL PSYCHOTHERAPY, COGNITIVE-BEHAVIORAL (07/06/17) INDIVIDUAL PSYCHOTHERAPY, SUPPORTIVE (07/06/17) Family History: States: No Known Family Hx - Social History Hx Alcohol Use: Yes Hx Substance Use: Yes - Immunization History Hx Tetanus Toxoid Vaccination: Yes Hx Influenza Vaccination: No Hx Pneumococcal Vaccination: No Review Of Systems Constitutional: Negative for: Fever Gastrointestinal: Negative for: Nausea, Vomiting Psych: Negative for: Suicidal ideation, Withdrawal Physical Exam - Physical Exam Appears: Non-toxic, No Acute Distress Skin: Normal Color, Warm, Dry, No Rash Head: Atraumatic, Normacephalic Eye(s): bilateral: Normal Inspection Nose: Normal Oral Mucosa: Moist Lips: Normal Appearing Neck: Normal ROM Chest: Symmetrical Cardiovascular: Rhythm Regular, No Murmur Respiratory: Normal Breath Sounds, No Accessory Muscle Use Gastrointestinal/Abdominal: Soft, No Tenderness Extremity: Normal ROM, No Deformity Neurological/Psych: Oriented x3, Normal Speech ED Course And Treatment - Laboratory Results Result Diagrams: 10/15/17 11:07 10/15/17 11:07 O2 Sat by Pulse Oximetry: 96 Pulse Ox Interpretation: Normal (RA) Disposition Discussed With : Johanny Bermudez Doctor Will See Patient In The: Hospital Counseled Patient/Family Regarding: Studies Performed, Diagnosis - Disposition Disposition: HOSPITALIZED Disposition Time: 13:30 Condition: FAIR Forms: [facility] (Romanian) - Clinical Impression Clinical Impression: Alcohol abuse - Scribe Statement The provider has reviewed the documentation as recorded by the Scribe (Joshau Granados) All medical record entries made by the Scribe were at my direction and personally dictated by me. I have reviewed the chart and agree that the record accurately reflects my personal performance of the history, physical exam, medical decision making, and the department course for this patient. I have also personally directed, reviewed, and agree with the discharge instructions and disposition.
--- NOTE | 2017-10-15 14:13 | PCM.BM ---
<Sylvia Barbour - Last Filed: 10/15/17 14:12> Treatment Plan Problems - Problems identified on initial assessmt potential for alcohol withdrawal symptoms Date Initiated: 10/15/17 Assessment reference: NA Status: Active Treatment assets and liabiliti Patient Assests: adapts well, cooperative, motivated, ADL independent, negotiates basic needs Patient Liabilities: substance abuse - Milieu Protocol Maintain good personal hygiene: daily Encourage regular showers, daily Remind patient to perform daily oral care, daily Assist patient to perform ADL's Conduct patient checks and document Observation sheet: Q15 minutes Maintain personal safety: every shift Educate patient to report safety concerns to staff, every shift Monitor environment for contraband/sharps Medication safety: Monitor for expected outcome, potential side effects: every shift, Assess barriers to learning: every shift, Assess readiness for medication education: every shift <Johanny Bermudez - Last Filed: 10/15/17 15:54> - Diagnosis (1) Major depression Status: Acute Interventions: 10/15/17 15:54 * Assess/adjust medications daily and /or as needed * See patient on an individual basis 7x/week to assess symptoms of depression * Monitor for side effects & effectiveness of medications * (2) Alcohol use disorder, severe, dependence Status: Acute Interventions: 10/15/17 15:54 * Assess 7x/week regarding severity of withdrawal * Educate regarding risks, benefits, side effects and alternatives of medications * Use Motivational Interviewing for abstinence * Use CBT for relapse prevention * Medication management for withdrawal symptoms * Encourage medication assisted treatment *
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
[2017-10-16 09:41] VITALS: BP 134/92; PULSE 69; RESP 18; TEMP 98; O2SAT 99
[2017-10-16] MEDS ORDERED: Multiple Vitamins Tab PO SCH (10:00)
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
== END 2017-10-16 09:00 | disposition left against medical advice (07) | DRG 894 ==
LOC: C.ER 09:56 → C.7D 13:29
PROVIDERS: ADMIT Psychiatry & Neurology Psychiatry; ATTEND Psychiatry & Neurology Psychiatry
PROC: HZ2ZZZZ Detoxification Services for Substance Abuse Treatment (ICD-10-PCS; principal; 2017-10-15)
PROC: HZ59ZZZ Individual Psychotherapy for Substance Abuse Treatment, Supportive (ICD-10-PCS; 2017-10-15)
PROC: HZ56ZZZ Individual Psychotherapy for Substance Abuse Treatment, Psychoeducation (ICD-10-PCS; 2017-10-15)
PROC: GZ3ZZZZ Medication Management (ICD-10-PCS; 2017-10-15)
PROC: HZ80ZZZ Medication Management for Substance Abuse Treatment, Nicotine Replacement (ICD-10-PCS; 2017-10-15)
DX: F10.230 Alcohol dependence with withdrawal, uncomplicated (principal); F12.90 Cannabis use, unspecified, uncomplicated; F32.9 Major depressive disorder, single episode, unspecified; F41.1 Generalized anxiety disorder; F17.210 Nicotine dependence, cigarettes, uncomplicated; I10 Essential (primary) hypertension; Z91.19 Patient's noncompliance with other medical treatment and regimen; Z81.8 Family history of other mental and behavioral disorders